=== PATIENT | male | born 1970 | race Caucasian/White ===

== ENCOUNTER 2020-01-29 20:08 | Inpatient (IN) | payer MEDICAID, SELFPAY ==
[2020-01-29 20:13] VITALS: BP 147/98; PULSE 76; RESP 13; TEMP 36.9; O2SAT 99
--- NOTE | 2020-01-29 20:15 | RT.EKG_ITS ---
APPROVED REPORT Exam: Resting ECG Patient Location: E HR:66 bpm ECG Measurements Heart Rate 66 AXIS UT 147 P 64 QRSd 117 QRS 77 QT 374 T 57 QTc 393 <Conclusion> Sinus rhythm...normal P axis, V-rate 60- 99 Nonspecific intraventricular conduction delay...QRSd >115mS, not LBBB/RBBB Normal [place] I have reviewed and interpreted ECG and agree with software generated interpretation.
--- NOTE | 2020-01-29 20:16 | W.ED.GENAD ---
Discharge Plan Disposition Patient Disposition: [facility] INPATIENT Condition: Good Discharge Details Chief Complaint: Palpitatns Clinical Impression: Near syncope, Epigastric pressure, Elevated troponin I level Primary Care Provider: Sallie Segura ED Provider: Logan Rondon and New Rx's Prescriptions: No Action ibuprofen 200 MG capsule 400 mg PO PRN PRNRF: 0 Medical Decision Making Patient presents to ED with palpitations, lightheadedness, shortness of breath, and this evening some abdominal pressure. He denies having chest pain or pressure. He has no known cardiac risk factors other than smoking E cigarettes. Family has history of arrhythmias and valvular disease. Low risk for PE. Does not appear to be in any type of distress. His EKG is sinus rhythm and he does have a nonspecific intraventricular delay. ST segments are normal. Laboratory studies ordered including TSH. Chest x-ray ordered to evaluate heart size. Will plan repeat EKG and troponin at 3 hours due to the complaint of upper abdominal pressure this evening. First set of laboratory studies look fine. He is not anemic. Electrolytes are normal. First troponin negative. D-dimer negative. TSH just a little bit high but free T4 normal. Chest x-ray unremarkable. Patient has had no arrhythmias or desaturations monitor. We will plan second EKG and troponin and discharged to follow-up as outpatient if unchanged. Second EKG is sinus bradycardia but otherwise normal. However, second troponin has gone up and is now 0.14. Patient has been asymptomatic here. This is clearly a significant change. Aspirin and heparin ordered. Cardiology consult with [facility] asked for. Discussed with cardiology at [facility]. They are not convinced that this is necessarily a nSTEMI. Agree with admission for trending of enzymes and ECHO if possible in the morning. Continue heparin for now. Case discussed with hospitalist who accepts patient for admission here to telemetry bed. Patient remains asymptomatic and stable at this time. Lab Data Lab results reviewed: Yes I reviewed the patient's lab results. HPI General Mode of arrival: ambulatory. Date/Time Provider Initiated Documentation: 01/29/20 20:16. Limitations to Documentation: no limitations. Information obtained by: patient and RN notes reviewed. HPI Narrative: Patient presents to ED with complaint of palpitations, racing heart and lightheadedness since yesterday. This afternoon seemed to break and he felt better. This evening symptoms came back. He is feeling short of breath as well. He does report that he took his pulse when he felt this way yesterday and only noted that it was around 85-90. He has had lightheadedness, tunnel vision, ringing in the ears like he is going to pass out intermittently since yesterday. He denies having headache or vertigo. He has no neurologic deficits or changes. He has no vomiting, diarrhea, fever, cough. There is no leg pain or leg swelling. He has noted some upper abdominal pressure this evening after dinner. That is resolved at this point. As far as he knows he is healthy with no significant medical problem but has not seen a physician in almost a decade. He does use e-cigarettes. There is no family history of ischemic cardiac disease but there is history of arrhythmia and valvular disease. Related Data Home Medications Medication Instructions Recorded Confirmed ibuprofen 400 mg PO PRN PRN 08/21/14 08/21/14 Allergies Allergy/AdvReac Type Severity Reaction Status Date / Time No Known Allergies Allergy Unverified 08/21/14 15:29 Review of Systems Narrative: As documented in HPI otherwise negative as below. Const: no fever, chills, weakness Resp: no cough, pleuritic pain CV: no CP, diaphoresis, edema, syncope GI: no abdominal pain, nausea, vomiting, diarrhea Neuro: no headache, numbness, focal weakness, confusion PFSH Medical History (Updated 01/30/20 @ 01:40 by Logan Rondon MD) Basal cell carcinoma (BCC) (Chronic) Surgical History S/P vasectomy (Acute) Family History (Updated 01/20/20 @ 11:26 by Sharonda Crowley) Mother Depression Father Hypertension Sister Depression Sister No problems noted. Son Asthma Daughter No problems noted. Daughter Asthma Maternal Grandfather , 66 Cancer Paternal Grandfather , 91 No problems noted. Maternal Grandmother , 86 No problems noted. Paternal Grandmother , 95 Cancer Social History Smoking/Tobacco Use Status: Current every day Tobacco Type: e-cigarettes Alcohol Intake: current Alcohol Intake frequency: a few times a week Alcohol type: beer Drug use: Daily Substance use type: marijuana Caregiver/Support person: No Household members: other Details: SON ON WEEKENDS Housing: house Communication Needs: None Pets and animals: No Sexually active: No Do you think of yourself as: straight/heterosexual Current gender identity: male What is your relationship status?: Panel score (0-1 are the most socially isolated patients): 0 What type of physical activity do you participate in: other Details: HIKING AND MARTIAL ARTS Duration: 60-90 minutes/day Frequency: 5-6 times per week Seatbelt use: always 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 Initially hypertensive but otherwise normal vitals and room air pulse ox. Const: WDWN male in NAD. HEENT: NC/AT. Normal facial exam. Eyes: Normal conjunctiva and sclera. Neck: Supple. Trachea midline. Lungs: Normal respiratory effort. Lungs are clear. Cor: RRR without murmur/gallop. Good radial pulses. GI: Soft. NT/ND. No guarding or rebound. Neuro: A+O x 3. Normal speech, mentation, gait. Cranial nerves II - XII grossly intact. No gross motor or sensory deficit. Ext: No C/C/E. No calf tenderness. Skin: Warm and dry without rash.
[2020-01-29 20:40] LABS: Abs Immature Grans 0.02 k/cumm (0.0-0.09); Absolute Basophil Count 0.03 k/cumm (0.0-0.2); Absolute Eosinophil Count 0.25 k/cumm (0.0-0.7); Absolute Lymphocyte Count 3.05 k/cumm (1.2-3.4); Absolute Monocyte Count 0.77 k/cumm (0.11-0.7); Absolute Neutrophil Count 4.43 k/cumm (1.2-6.7); Basophils % 0.4; Eosinophils % 2.9; HCT 40.9 % (40.0-50.0); HGB 14.8 g/dL (13.5-17.5); Immature Grans % 0.2 %; Lymphocytes % 35.7; Mean Corp. HGB Concentration 36.2 g/dL (32.0-36.0); Mean Corpuscular Hemoglobin 29.7 pg (27.0-33.0); Mean Platelet Volume 8.7 fL (8.0-11.0); Neutrophils % 51.8; Platelet Count 286 x1000/uL (130-400); RBC 4.99 m/cumm (4.50-6.00); RBC Distribution Width 13.2 % (11.8-14.1); White Blood Cell Count 8.55 k/cumm (4.4-10.8)
[2020-01-29 20:56] LABS: ALT 25 U/L (16-63); AST 19 U/L (15-37); Albumin 4.4 g/dL (3.4-5.0); Alkaline Phosphatase 62 U/L (46-116); BUN 19 mg/dL (7-18); Bilirubin, Total 0.4 mg/dL (0.2-1.0); CREATININE 1.08 mg/dL (0.70-1.30); Calcium 9.4 mg/dL (8.5-10.1); Chloride 103 mmol/L (98-107); Glucose 104 mg/dL (74-106); Potassium 3.5 mmol/L (3.5-5.1); Sodium 140 mmol/L (136-145); Total Protein 7.5 g/dL (6.4-8.2)
--- NOTE | 2020-01-29 21:00 | DI.RAD_ITS ---
EXAM: XR CHEST 2V PA LATERAL CLINICAL HISTORY: SOB TECHNIQUE: 2D digital imaging was performed. COMPARISON: No exams were available for comparison FINDINGS: The heart is not enlarged. The lungs are clear and well expanded. No pleural effusion seen. Mediastin al contours appear intact. IMPRESSION: Normal chest
[2020-01-29 21:01] LABS: Troponin I < 0.05 ng/mL (<0.06)
--- NOTE | 2020-01-29 21:08 | DI.VRAD_ITS ---
PROCEDURE INFORMATION: Exam: XR Chest, 2 Views Exam date and time: 01/29/2020 9:01 PM Age: 49 years old Clinical indication: Shortness of breath TECHNIQUE: Imaging protocol: XR of the chest Views: 2 views. COMPARISON: No relevant prior studies available. FINDINGS: Lungs: Unremarkable. No consolidation. Pleural space: Unremarkable. No pleural effusion. No pneumothorax. Heart/Mediastinum: Unremarkable. No cardiomegaly. Bones/joints: Unremarkable. IMPRESSION: No acute findings. Dictated and Authenticated by: Rocael Dorsey MD. Ordering:KAMILLE Ford MD
[2020-01-29 21:14] LABS: D-Dimer 279 ng/mlFEU (<500)
[2020-01-29 21:21] LABS: TSH (W/Ref FT4) 5.51 uIU/mL (0.36-3.74)
[2020-01-29 21:40] VITALS: BP 119/87; PULSE 59; RESP 16; O2SAT 96
--- NOTE | 2020-01-29 21:40 | NUR.NOTE ---
Pt resting in bed, NAD. Denies pain. Aware of plan for repeat EKG and trop at 2330. Call ruiz in reach
[2020-01-29 21:46] LABS: FREE T4 1.33 ng/dL (0.76-1.46)
--- NOTE | 2020-01-29 23:15 | RT.EKG_ITS ---
APPROVED REPORT Exam: Resting ECG Patient Location: E HR:53 bpm ECG Measurements Heart Rate 53 AXIS IA 136 P 45 QRSd 112 QRS 69 QT 416 T 49 QTc 390 <Conclusion> Sinus bradycardia...rate< 60 Normal [place] I have reviewed and interpreted ECG and agree with software generated interpretation.
[2020-01-29 23:51] VITALS: BP 126/83; PULSE 57; RESP 13; O2SAT 96
[2020-01-30] VITALS (7 sets, daily range): BP systolic 128–146; BP diastolic 75–101; PULSE 48–67; RESP 16–20; TEMP 35.2–36.6; O2SAT 95–100
[2020-01-30 00:23] LABS: Troponin I 0.14 ng/mL (<0.06)
[2020-01-30] MEDS: Aspirin 81 MG CHEW 324 MG CH (00:43)
--- NOTE | 2020-01-30 01:03 | NUR.NOTE ---
Remains pain free. sinus tenzin on monitor.
[2020-01-30 01:28] LABS: PTT Activated 25.3 sec (21.0-31.4); Prothrombin Time 10.4 sec (9.3-11.0)
[2020-01-30] MEDS: POTASSIUM CHLORIDE/D5-0.45NACL 1,000 ML 100 MEQ IV (04:44)
[2020-01-30] MEDS: Ticagrelor 90 MG TAB 180 MG PO (04:44)
[2020-01-30 04:56] LABS: Troponin I < 0.05 ng/mL (<0.06)
[2020-01-30 05:42] LABS: *AMPHETAMINES SCREEN URINE Negative (Negative); *BARBITURATES SCREEN URINE Negative (Negative); *BENZODIAZEPINES SCREEN URINE Negative (Negative); Cannabinoids THC POSITIVE (Negative); Cocaine Screen,Urine Negative (Negative); METHADONE URINE SCREEN Negative (Negative); OPIATES URINE SCREEN Negative (Negative)
[2020-01-30 05:46] LABS: Tricyclic Antidepressants Negative (Negative)
--- NOTE | 2020-01-30 06:20 | HPE_ITS ---
Date of service: 01/30/20 Time of Service: 06:20 Assessment and Plan Assessment and plan (1) Elevated troponin I level: Status: Acute Assessment and plan: New epigastric discomfort and lightheadedness s uggesting possible hypoperfusion with a dynamic increase on second troponin level both suggest acute coronary syndrome. EKG on presentation did not show ST elevations, and case reviewed with [facility] cardiology from the emergency room, no indication for transfer for emergent catheterization. Patient was started on therapeutic heparin drip, which will be continued along with antiplatelet therapy. I have also written for high intensity statin therapy. Hemodynamically patient has been stable, with low pulses. If it becomes more clear that this was a non-ST elevation VT after the input of cardiology, could consider starting low-dose beta-tobi. No current evidence of CHF clinically or on chest x-ray The elevated troponin was only in intermediate range, and third troponin was back to normal. This trend, along with lack of any ongoing symptoms, suggest there is no ongoing ischemia. We will touch base with cardiology before turning off heparin drip (though I am now hearing really may not be available in-house today). With a history of valvular disease in first-degree relatives, will get echocardiogram as well. He is 6 feet 5 inches tall raising some concern of Marfan's or Marbella-Danlos syndrome given that family history. (2) Continuous nicotine dependence: Status: Acute Assessment and plan: Former smoker, current vaping. Still likely increases cardiac risk. Will encourage patient and offered tools of nicotine cessation, declines for now. (3) Hyperthyroidism, subclinical: Status: Acute Assessment and plan: Mildly elevated TSH with normal free T4. No indic ation for treatment. Should be followed as an outpatient. (4) DVT prophylaxis: Status: Acute Assessment and plan: On heparin for acute coronary syndrome (5) Discharge planning issues: Status: Acute Assessment and plan: Patient is admitted inpatient with telemetry monitoring. Disposition pending serial troponins and cardiology input regarding management. History of Present Illness History of Present Illness Chief Complaint: epigastric pressure Narrative: 49-year-old male with history of smoking and current vaping, history of chronic anxiety who presented with 2 days of persistent epigastric pressure associated with shortness of breath, lightheadedness, and palpitations. Patient's states he was in his normal state of health until Sunday after lunch when he started feeling an epigastric pressure. Onset was at rest and down. He had chopped wood earlier in that day without symptoms. He describes this as pushing, not painful or sharp. This was associated with some difficulty catching his breath, feeling that his heart was racing, and feeling lightheaded. There was no radiation to the back or neck or arm. Patient stated in the middle of the epigastrium or lower chest. He did feel like he had gas in his stomach, but was not able to burp. Not associated with mahsa heartburn. He does have chronic anxiety, but this does not seem to have been triggered by increase in anxiety. Symptoms continued and varying intensity, he was able to go to sleep that evening. He resumed shortly after waking up on . They went away for 2 hours, but returned evening about 45 minutes after his dinner, which point he presented to the emergency room. He has not had resumption of the epigastric pressure since being in the emergency room. He did feel short of breath briefly upon waking this morning, but this resolved after a couple of deep breaths. Last night in the emergency room, he was started on a heparin drip along with aspirin. Given a single dose of ticagrelor and started on 80 mg atorvastatin upon admission. Of note, he was taking scheduled ibuprofen because he throughout his lower back the week prior to presentation, but this stopped 2 days prior to his onset of symptoms. Review of Systems All systems reviewed & are unremarkable except as noted in HPI and below Eyes Eyes: Denies eye pain (Some blurriness with lightheaded symptoms ) ENT Ears, Nose, Mouth, and Throat: Denies vertigo, Denies mouth lesions, Denies nasal congestion, Denies sinus pain and Denies sore throat Comments: Some ringing in ears when he was feeling dizzy Cardiovascular Comments: Some increased hand sweating. No orthopnea Respiratory Respiratory: Denies cough, Denies pain on inspiration and Denies wheezing Gastrointestinal Gastrointestinal: Denies melena, Denies hematochezia, Denies heartburn and Denies vomiting Musculoskeletal Musculoskeletal: Reports back pain and Denies radiating pain into limb Neurologic Neurologic: Denies vertigo Psychiatric Psychiatric: Reports anxiety and Denies panic attacks Hematologic/Lymphatic Hematologic/Lymphatic: Denies easy bleeding and Denies easy bruising Allergic/Immunologic Allergic/Immunologic: Denies wheezing [facility] Medical History Anxiety (Chronic) Basal cell carcinoma (BCC) (Chronic) Continuous nicotine dependence (Acute) Hyperthyroidism, subclinical (Acute) Surgical History S/P vasectomy (Acute) Family History Mother Depression Father Hypertension Sister Depression Sister No problems noted. Son Asthma Daughter No problems noted. Daughter Asthma Maternal Grandfather , 66 Cancer Paternal Grandfather , 91 No problems noted. Maternal Grandmother , 86 No problems noted. Paternal Grandmother , 95 Cancer Social History (Updated 01/30/20 @ 07:40 by Dakota Capone) Smoking/Tobacco Use Status: Current every day Tobacco Type: e-cigarettes Alcohol Intake: current Alcohol Intake frequency: a few times a week Alcohol ty pe: beer Drug use: Daily Substance use type: marijuana Caregiver/Support person: No Household members: other Details: SON ON WEEKENDS Housing: house Communication Needs: None Pets and animals: No Sexually active: No Do you think of yourself as: straight/heterosexual Current gender identity: male What is your relationship status?: Panel score (0-1 are the most socially isolated patients): 0 What type of physical activity do you participate in: other Details: HIKING AND MARTIAL ARTS Duration: 60-90 minutes/day Frequency: 5-6 times per week Seatbelt use: always 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 Formally worked in [employer], currently not working Meds Home Medications and Allergies Home Medications Medication Instructions Recorded Confirmed Type ibuprofen 400 mg PO PRN PRN 08/21/14 08/21/14 History Allergies Allergy/AdvReac Type Severity Reaction Status Date / Time No Known Allergies Allergy Unverified 08/21/14 15:29 Exam Narrative Exam Narrative: General: Alert and oriented x3, sits up in bed comfortably with no distress. Speaking comfortably in full sentences. Pleasant. Nic, but not overly thin body habitus HEENT: Normocephalic, atraumatic. Conjunctive are clear, no icterus. Pupils equal round reactive to light, extraocular motions intact. Moist mucous membranes with oropharynx benign. No rhinorrhea. Neck is supple with no thyromegaly or other masses. Normal range of motion. Lungs: Clear to auscultation bilaterally normal effort. No wheezes or rails. Cardiovascular: Regular rate and rhythm, no murmurs, gallops, rubs. Carotid pulses 2+ bilaterally, no bruits. Radial and pedal pulses also 2+ bilaterally. Abdomen: Active bowel sounds, soft, nontender nondistended. No organomegaly or other masses. Extremities: No cyanosis, clubbing, or edema. Nontender to palpation in the lower extremities. MSK: No joint redness or swelling. No clear hypermobility or deformity Skin: No rashes or other skin lesions. Neurologic: Cranial nerves II through XII grossly intact. Normal speech, gait, coordination. No tremor. Psychiatric: Mood and affect slightly anxious. Normal thought process. No ps ychomotor agitation. Results Imaging Chest x-ray: report reviewed (No cardiomegaly, no airspace disease.) Additional studies: Normal sinus with no ischemic ST abnormalities, specific intraventricular conduction delay. Repeat EKG 3 hours after presentation showed sinus bradycardia and again no ischemic ST changes. EKG: report reviewed Labs Result diagrams: 01/29/20 20:20 01/29/20 20:20 Labs: Laboratory Results - last 24 hr 01/29/20 01/29/20 01/29/20 20:20 20:20 20:20 WBC 8.55 RBC 4.99 Hgb 14.8 Hct 40.9 MCV 82.0 MCH 29.7 MCHC 36.2 H RDW 13.2 Plt Count 286 MPV 8.7 Immature Gran % 0.2 Neutrophils % 51.8 Lymphocytes % 35.7 Monocytes % 9.0 Eosinophils % 2.9 Basophils % 0.4 Absolute Neutrophils 4.43 Absolute Lymphocytes 3.05 Absolute Monocytes 0.77 H Absolute Eosinophils 0.25 Absolute Basophils 0.03 PT INR APTT D-Dimer 279 Sodium 140 Potassium 3.5 Chloride 103 Carbon Dioxide 24.0 Anion Gap 13.0 H BUN 19 H Creatinine 1.08 Estimated GFR/1.73 m2 >= 60.00 Glucose 104 Calcium 9.4 Magnesium 2.0 Total Bilirubin 0.4 AST 19 ALT 25 Alkaline Phosphatase 62 Troponin I < 0.05 Total Protein 7.5 Albumin 4.4 TSH 5.51 H Free T4 1.33 Urine Opiates Screen Urine Methadone Screen Ur Barbiturates Screen Ur Tricyclics Screen Ur Amphetamines Screen U Benzodiazepines Scrn Urine Cocaine Screen Ur THC Screen 01/29/20 01/30/20 01/30/20 23:25 00:00 04:00 WBC RBC Hgb Hct MCV MCH MCHC RDW Plt Count MPV Immature Gran % Neutrophils % Lymphocytes % Monocytes % Eosinophils % Basophils % Absolute Neutrophils Absolute Lymphocytes Absolute Monocytes Absolute Eosinophils Absolute Basophils PT 10.4 INR 1.0 APTT 25.3 D-Dimer Sodium Potassium Chloride Carbon Dioxide Anion Gap BUN Creatinine Estimated GFR/1.73 m2 Glucose Calcium Magnesium Total Bilirubin AST ALT Alkaline Phosphatase Troponin I 0.14 H* Total Protein Albumin TSH Free T4 Urine Opiates Screen Negative Urine Methadone Screen Negative Ur Barbiturates Screen Negative Ur Tricyclics Screen Negative Ur Amphetamines Screen Negative U Benzodiazepines Scrn Negative Urine Cocaine Screen Negative Ur THC Screen Positive A 01/30/20 04:10 WBC RBC Hgb Hct MCV MCH MCHC RDW Plt Count MPV Immature Gran % Neutrophils % Lymphocytes % Monocytes % Eosinophils % Basophils % Absolute Neutrophils Absolute Lymphocytes Absolute Monocytes Absolute Eosinophils Absolute Basophils PT INR APTT D-Dimer Sodium Potassium Chloride Carbon Dioxide Anion Gap BUN Creatinine Estimated GFR/1.73 m2 Glucose Calcium Magnesium Total Bilirubin AST ALT Alkaline Phosphatase Troponin I < 0.05 Total Protein Albumin TSH Free T4 Urine Opiates Screen Urine Methadone Screen Ur Barbiturates Screen Ur Tricyclics Screen Ur Amphetamines Screen U Benzodiazepines Scrn Urine Cocaine Screen Ur THC Screen Last Vital Signs Temp 36.6 C 01/30/20 02:54 Pulse 60 01/30/20 02:54 Resp 18 01/30/20 02:54 BP 135/87 01/30/20 02:54 Pulse Ox 96 01/30/20 02:54 COVID-19 Screening Have you,or household,traveled outside [place] in last 14 days?: No Had IN PERSON contact w/suspected or confirmed C-19 person: No
[2020-01-30] MEDS: Aspirin 81 MG CHEW 162 MG PO (08:38)
[2020-01-30 08:43] LABS: PTT Activated 36.6 sec (21.0-31.4)
--- NOTE | 2020-01-30 09:01 | INITIAL_ITS ---
- If Service Date Differs Date of service: 01/30/20 Time of Service: 09:01 Care Management Initial Assess REASON FOR HOSPITALIZATION:: Acute ccoronary syndrome PAST MEDICAL HISTORY/PAST SURGICAL HISTORY:: Medical History . Anxiety (Chronic). Basal cell carcinoma (BCC) (Chronic). Continuous nicotine dependence (Acute). Hyperthyroidism, subclinical (Acute). Surgical History . S/P vasectomy (Acute) PREVIOUS FUNCTIONAL STATUS/SOCIAL/FAMILY SUPPORTS:: Anant lives in a single family home in [place], [place] with his 14 year old son, who is with him on weekends. Anant was employed until December in the [employer].He is currently unemployed but is receiving unemployment compensation which he states is very helpful. Anant is independent in the community and does not receive any community services.. CURRENT FUNCTIONAL STATUS:: Anant was sitting up in a chair when CM met with him. He appeared to be in good spirits and engaged readily with CM. Anant hopes to be able to go home later today. ADVANCE DIRECTIVES:: None on file Has patient been provided with info about the portal/API?: No Did the patient sign up for the portal?: Yes (previously) CODE STATUS:: Full Code INSURANCE COVERAGE / FINANCIAL ISSUES:: Medicaid CURRENT HOME/COMMUNITY SERVICES/EQUIPMENT:: none PRIMARY CARE PHYSICIAN:: Sallie Segura POTENTIAL DISCHARGE NEEDS:: Follow up with cardiology, PCP and discharge plan of care PATIENT/FAMILY EDUCATION NEEDS:: Discharge plan, limitations, follow up plan, Ask Me Three TRANSPORTATION:: via private vehicle PLAN:: Anant will be discharged home with no new services. He will be scheduled for a stress test on Sunday and follow up with Cardiology and his PCP. He willl transport home via private vehicle with family.
--- NOTE | 2020-01-30 13:00 | DI.CT_ITS ---
EXAM: CT THORAX CTA CLINICAL HISTORY: Chest pain TECHNIQUE: COMPARISON: No exams were available for comparison FINDINGS: CT angiography of the chest was performed with bolus infusion 100 cc of Omnipaque 350 images obtained through the upper abdomen show unremarkable appearance of visualized portions of the liver, spleen, pancreas, adrenals, and kidneys. Gallbladder intact as visualized and no biliary dilatation seen. There is no evidence of mediastinal or hilar adenopathy. The tracheobronchial tree appears intact. The lungs are clear. No pleural effusion or pneumothorax. Thoracic aorta is of normal diameter and there is no evidence of dissection. Major branches appear i ntact. Pulmonary arteries are not ideally opacified but there is no sign trauma pulmonary artery embolus see n. Cardiac size is within normal limits, no pericardial effusion, no coronary artery calcification seen. IMPRESSION: Negative chest CT angiogram, no evidence of thoracic aortic aneurysm or dissection.
[2020-01-30] MEDS: Omnipaque 350 MG/ML 100 ML BTL IJ (13:11)
--- NOTE | 2020-01-30 13:27 | PHA.REVIEW ---
Pharmacy Admission Review - Admission Clinical Review (Last Reviewed 01/30/20 @ 07:26 by Dakota Capone) Hyperthyroidism, subclinical (Acute) Discharge planning issues (Acute) DVT prophylaxis (Acute) Continuous nicotine dependence (Acute) Near syncope (Acute) Epigastric pressure (Acute) Elevated troponin I level (Acute) No Known Allergies Allergy (Unverified 08/21/14 15:29) Height 6 ft 5 in Weight 95 kg - Renal Dosing Renal Dosing: BUN 19 mg/dL (7-18) H 01/29/20 20:20 Creatinine 1.08 mg/dL (0.70-1.30) 01/29/20 20:20 Medications needing adjustments: Reviewed - Anticoagulation Anticoagulation: Hgb 14.8 g/dL (13.5-17.5) 01/29/20 20:20 Hct 40.9 % (40.0-50.0) 01/29/20 20:20 Plt Count 286 x1000/uL (130-400) 01/29/20 20:20 INR 1.0 (0.9-1.1) 01/30/20 00:00 Creatinine 1.08 mg/dL (0.70-1.30) 01/29/20 20:20 DVT Prohphylaxis: Reviewed Medications: Aspirin - Opiate Usage Evaluate Pain Scale/Pains Meds: Reviewed Scheduled Bowel Reg ordered if on Opiates?: No - Relevant Labs Sodium 140 mmol/L (136-145) 01/29/20 20:20 Potassium 3.5 mmol/L (3.5-5.1) 01/29/20 20:20 Chloride 103 mmol/L (98-107) 01/29/20 20:20 Magnesium 2.0 mg/dL (1.8-2.4) 01/29/20 20:20 - DM Control DM Control: Glucose 104 mg/dL (74-106) 01/29/20 20:20 Insulin Dosing: N/A - Heart Failure/ND Heart Failure/ND: Troponin I < 0.05 ng/mL (<0.06) 01/30/20 04:10 EF%, YANCI's, B-Blockers, Diuretics: Reviewed - BP Control BP Control: Blood Pressure 146/75 Blood Pressure 131/92 Blood Pressure 137/101 Blood Pressure 135/87 Blood Pressure 135/87 Blood Pressure 128/86 If elevated: Reviewed - Qtc Review If Elevated: Reviewed (QTc 390) - IV to PO Switch IV Medications: Reviewed - Home Meds Home Med List reviewed: Reviewed - Current meds Current Medication Order Review: Reviewed (One time does of ticagrelor given @ 0150 01/29)
[2020-01-30 13:39] LABS: COVID-19 RT-PCR UVMMC Result Negative (Negative)
--- NOTE | 2020-01-30 14:26 | PGE_ITS ---
Date of Service Date of service: 01/30/20 Time of Service: 14:27 Assessment and Plan Assessment and plan (1) Elevated troponin I level: Status: Resolved Assessment and plan: Given his symptoms and transient rise in his troponin, I think that he needs further cardiology evaluation, Unfortunately we do not have any cardiology until Sunday. Furthermore, we do not have echo today either. I have placed a call to [facility] transfer center to discuss his case w/ their cardiology to discuss management, i.e., inpatient vs close outpatient follow up stress MPI and echo. Case was reviewed with Dr. Ayala, beauty specialist from [facility] who reviewed the EKGs and discuss case with me. In light of the fact that patient has been asymptomatic for nearly 24 hours with no arrhythmias and no EKG changes and no rise in his troponin he agrees with me that it is probably safe to discharge him home with close follow-up with expedited stress MPI treadmill test for next week. I will also get an echocardiogram next week. (2) Epigastric pressure: Status: Resolved Assessment and plan: resolved. I will put him prophylactically on a PPI. (3) Near syncope: Status: Resolved Assessment and plan: He had a feeling of nearly passing out on Sunday with his episode and then felt fatigued all day yesterday. This may have been vagal or may have been d/t to arrythmias. It is rather odd that he felt palpitations w/ his dyspnea and feeling of like he was going to pass out. While here he has been sinus bradycardia to sinus rhythm but no tachycardia and no AV block. Subjective Subjective Interval history since last seen: Patient was seen this morning around 9:30 AM. He has remained pain-free and had no dyspnea since he was admitted. See Dr. Dakota Arroyo's admission H&P for details. This 49-year-old male smoker presented with exertional dyspnea, palpitations but no actual chest pain. All of his symptoms began 2 days ago after cutting and splitting wood. He felt fatigued all day yesterday and when he continued having feelings of lightheadedness and generalized malaise he presented to the emergency department. He had transient elevation in his troponin which is since returned to normal. He had serial EKGs which failed to show any acute infarct or ischemic pattern. He had some nonspecific interventricular conduction delay as EKG. His initial troponin was less than 0.05 but his repeat level on a second set was in the indeterminate range at 0.1 4 repeat level this morning was less than 0.05. Patient was started on aspirin and Brilinta and heparin drip last night by the information technology associate. Dr. Logan Rondon, ER physician, spoke with cardiology at [facility] [place] last night. He indicated that cardiology was not convinced that this is a non-STEMI but recommended continued admission for observation and serial troponin levels. He was started on heparin in the emergency department as well as aspirin and Dr. Dakota Capone, information technology associate, added Brilinta. We have no echo services and no cardiology services. I have reached out to [facility] this morning and they have no bed availability. At this time I have called [facility] this afternoon to talk with cardiology regarding potential transfer for inpatient evaluation versus discontinuing the heparin drip monitoring for any further anginal quality symptoms and if no further symptoms potentially doing outpatient work-up next week. I asked advised family history and does not sound like there is any history of premature coronary disease but multiple family members have had valvular heart disease including a sister and his mother both who had a valve replacement. His sisters disease with mitral valve prolapse. Exam Narrative Exam Narrative: Very tall thin muscular middle-age male who is in no distress he is alert oriented person place time and circumstance. Neck is supple no JVD normal carotid pulse no bruits Lungs are clear to auscultation. Heart regular rate and rhythm no appreciable murmur rub or gallop. Abdomen soft nontender no pulsatile masses no bruits. Extremities without peripheral cyanosis or edema. No calf tenderness. Objective Objective Clinical Data: Abnormal lab results 01/29/20 01/29/20 01/29/20 Range/Units 20:20 20:20 23:25 MCHC 36.2 H (32.0-36.0) g/dL Absolute Monocytes 0.77 H (0.11-0.7) k/cumm APTT (21.0-31.4) sec Anion Gap 13.0 H (3-11) mmol/L BUN 19 H (7-18) mg/dL Troponin I 0.14 H* (<0.06) ng/mL TSH 5.51 H (0.36-3.74) uIU/mL Ur THC Screen (Negative) 01/30/20 01/30/20 Range/Units 04:00 07:57 MCHC (32.0-36.0) g/dL Absolute Monocytes (0.11-0.7) k/cumm APTT 36.6 H D (21.0-31.4) sec Anion Gap (3-11) mmol/L BUN (7-18) mg/dL Troponin I (<0.06) ng/mL TSH (0.36-3.74) uIU/mL Ur THC Screen Positive A (Negative) Vital Signs Temperature 35.2 C L 01/30/20 11:15 Temperature Source Tympanic 01/30/20 11:15 Pulse 49 L 01/30/20 11:15 Pulse Rhythm Regular 01/30/20 06:50 Respiratory Rate 19 01/30/20 11:15 Respiratory Effort Non-Labored 01/30/20 06:50 Respiratory Depth Normal 01/30/20 06:50 Respiratory Pattern Normal 01/30/20 06:50 Blood Pressure 146/75 H 01/30/20 11:15 Pulse Oximetry 99 01/30/20 11:15 Oxygen Delivery Method Room Air 01/30/20 11:15 Oxygen Flow Rate 0 01/30/20 11:15 Pain Level 0 01/30/20 11:15 Comment 01/30/20 02:20 Intake & Output 01/29/20 01/30/20 01/30/20 23:59 11:59 23:59 Intake Total 82.5 / 82.5 Balance 82.5 / 82.5 Weight 90.718 kg 95 kg Intake: IV 82.5 / 82.5 Other: Urine Appearance Clear Laboratory Results WBC 8.55 k/cumm (4.4-10.8) 01/29/20 20:20 RBC 4.99 m/cumm (4.50-6.00) 01/29/20 20:20 Hgb 14.8 g/dL (13.5-17.5) 01/29/20 20:20 Hct 40.9 % (40.0-50.0) 01/29/20 20:20 MCV 82.0 fL (80-95) 01/29/20 20:20 MCH 29.7 pg (27.0-33.0) 01/29/20 20:20 MCHC 36.2 g/dL (32.0-36.0) H 01/29/20 20:20 RDW 13.2 % (11.8-14.1) 01/29/20 20:20 Plt Count 286 x1000/uL (130-400) 01/29/20 20:20 MPV 8.7 fL (8.0-11.0) 01/29/20 20:20 Immature Gran % 0.2 % 01/29/20 20:20 Neutrophils % 51.8 01/29/20 20:20 Lymphocytes % 35.7 01/29/20 20:20 Monocytes % 9.0 01/29/20 20:20 Eosinophils % 2.9 01/29/20 20:20 Basophils % 0.4 01/29/20 20:20 Absolute Neutrophils 4.43 k/cumm (1.2-6.7) 01/29/20 20:20 Absolute Lymphocytes 3.05 k/cumm (1.2-3.4) 01/29/20 20:20 Absolute Monocytes 0.77 k/cumm (0.11-0.7) H 01/29/20 20:20 Absolute Eosinophils 0.25 k/cumm (0.0-0.7) 01/29/20 20:20 Absolute Basophils 0.03 k/cumm (0.0-0.2) 01/29/20 20:20 PT 10.4 sec (9.3-11.0) 01/30/20 00:00 INR 1.0 (0.9-1.1) 01/30/20 00:00 APTT 36.6 sec (21.0-31.4) H D 01/30/20 07:57 D-Dimer 279 ng/mlFEU (<500) 01/29/20 20:20 Sodium 140 mmol/L (136-145) 01/29/20 20:20 Potassium 3.5 mmol/L (3.5-5.1) 01/29/20 20:20 Chloride 103 mmol/L (98-107) 01/29/20 20:20 Carbon Dioxide 24.0 mmol/L (21.0-32.0) 01/29/20 20:20 Anion Gap 13.0 mmol/L (3-11) H 01/29/20 20:20 BUN 19 mg/dL (7-18) H 01/29/20 20:20 Creatinine 1.08 mg/dL (0.70-1.30) 01/29/20 20:20 Estimated GFR/1.73 m2 >= 60.00 (mL/min/1.73m2) 01/29/20 20:20 Glucose 104 mg/dL (74-106) 01/29/20 20:20 Calcium 9.4 mg/dL (8.5-10.1) 01/29/20 20:20 Magnesium 2.0 mg/dL (1.8-2.4) 01/29/20 20:20 Total Bilirubin 0.4 mg/dL (0.2-1.0) 01/29/20 20:20 AST 19 U/L (15-37) 01/29/20 20:20 ALT 25 U/L (16-63) 01/29/20 20:20 Alkaline Phosphatase 62 U/L (46-116) 01/29/20 20:20 Troponin I < 0.05 ng/mL (<0.06) 01/30/20 04:10 Total Protein 7.5 g/dL (6.4-8.2) 01/29/20 20:20 Albumin 4.4 g/dL (3.4-5.0) 01/29/20 20:20 TSH 5.51 uIU/mL (0.36-3.74) H 01/29/20 20:20 Free T4 1.33 ng/dL (0.76-1.46) 01/29/20 20:20 Urine Opiates Screen Negative (Negative) 01/30/20 04:00 Urine Methadone Screen Negative (Negative) 01/30/20 04:00 Ur Barbiturates Screen Negative (Negative) 01/30/20 04:00 Ur Tricyclics Screen Negative (Negative) 01/30/20 04:00 Ur Amphetamines Screen Negative (Negative) 01/30/20 04:00 U Benzodiazepines Scrn Negative (Negative) 01/30/20 04:00 Urine Cocaine Screen Negative (Negative) 01/30/20 04:00 Ur THC Screen Positive (Negative) A 01/30/20 04:00 COVID-19 PCR Negative (Negative) 01/30/20 02:15 Nasopharyn COVID-19 PCR Not Applicable 01/30/20 02:15 Ref Test Perform Site [facility] 01/30/20 02:15 Reviewed Pertinent PMH: Yes Objective Narrative Objective Narrative: IMPRESSION: Negative chest CT angiogram, no evidence of thoracic aortic aneurysm or dissection.
--- NOTE | 2020-01-30 14:53 | CHAPLAIN ---
Anant was sitting up in a chair when I visited this morning. He said he is waiting for test results to return to determine if he being discharged today or staying here. I explained my role and offered support.
[2020-01-30] MEDS: Pantoprazole 40 MG TABCR PO (15:32)
--- NOTE | 2020-01-30 15:42 | DSE_ITS ---
Date of service: 01/30/20 Time of Service: 15:42 DS: Diagnosis Discharge Diagnosis (1) Elevated troponin I level: Status: Resolved Asessment and Plan: Patient had transient low level rise in his troponin without EKG changes. We are unable to get an echocardiogram or stress MPI study while as an inpatient. This will be set up for next week. Patient has been pain-free and without symptoms of dyspnea for the last [address] scan showed no aortic aneurysm. Echocardiogram could not be done as it was unavailable today. We will set him up for an echocardiogram next week. (2) Epigastric pressure: Status: Resolved (3) Near syncope: Status: Resolved Discharge Plan Disposition Patient Disposition: HOME Condition: Good Discharge Details Chief Complaint: Palpitatns Clinical Impression: Near syncope, Epigastric pressure, Elevated troponin I level Reason For Visit: palpitations, Admit Date/Time: 01/30/20 01:32 Admit Provider: Dakota Capone Attending Provider: Dakota Capone Primary Care Provider: Sallie Segura ED Provider: Logan Rondon [facility] Course Hospital Course: 49-year-old male smoker who is currently quit smoking but still vaping his past medical history is significant for basal cell carcinoma, nicotine dependence who presented after an acute episode on the day prior to admission of severe dizziness epigastric discomfort dyspnea and feeling like he was going to pass out. This occurred after he spent the day cutting and splitting wood. He went to bed but when he woke up the next day he felt fatigued and was c omplaining of palpitations. He has no known cardiac history although he has couple of family members who have had arrhythmias or valvular heart disease including a sister who had mitral valve prolapse requiring bovine valve replacement. As far as the patient knows he has had no known valvular heart disease. Work-up emergency department occluded serial EKGs that showed sinus rhythm with nonspecific interventricular conduction delay with a QRS duration of 117 ms but no bundle branch block and no advanced AV block. Repeat EKG showed sinus bradycardia rate of 53 bpm with a QRS duration of [address] acute [address] or T wave abnormalities. His first troponin came back negative at less than 0.05 and the ER physician was going to discharge him home but when he got the repeat troponin level it was in the indeterminate range of 0.14 and therefore the patient was admitted overnight for observation. Third set of troponin was obtained at 4 AM this morning came back negative at less than 0.05. Patient was started on heparin in the emergency department and the election assistant started the patient on Brilinta. Patient has remained pain-free. We are unable to get a stress test or echocardiogram today and as the patient has been pain-free and without any dyspnea or palpitations or arrhythmias he is going to be discharged home with follow-up stress MPI and echocardiogram next week. I discussed the case with Dr. Ayala, sign builder from [facility] who reviewed the EKGs and discussed the case with me. He feels that we can discharge her with close follow-up as well as the patient is able to get back into the hospital should he have any further symptoms. Home Meds and New Rx's Prescriptions: New aspirin 81 mg tablet,delayed release (DR/EC) 81 mg PO DAILY Qty: 30 RF: 0 No Action ibuprofen 200 MG capsule 400 mg PO PRN PRNRF: 0 Discharge Instructions Instructions: Angina (DC), Chest Pain (DC) Additional Instructions: You should receive instructions from the nursing staff regarding when to show up for your stress test for next week. If you have any symptoms of chest discomfort, dyspnea, dizziness or feel like you are going to pass out or extreme nausea do not hesitate to present to the emergency department. I would advise you to continue on an aspirin 81 mg tablet daily until we have gotten a negative stress test. Activity:: Activity as Tolerated Equipment/Supplies:: No Equipment Needed Diet:: Normal Diet Discharge Orders Other Ambulatory Orders: US echocardiogram (Routine) Timeframe: 3 Days Location: None Selected Ordered By: Pelon Chiu Nuclear Medicine Stress Test (Outpt) (ONCE) Timeframe: [id number] Facility: [facility] - Location: DIAGNOSTIC IMAGING DEPT Ordered By: Pelon Chiu DS: Summary Status at Discharge Functional status at discharge: independent ambulation Overall status at discharge: patient is back to baseline Mental Status: mental status grossly normal Speech and Movement: speech and movement normal Mood: congruent mood Affect: normal affect Time Spent with Patient providing and/or coordinating discharge services: Less than 30 minutes Exam Narrative Exam Narrative: Very tall thin muscular middle-age male who is in no distress he is alert oriented person place time and circumstance. Neck is supple no JVD normal carotid pulse no bruits Lungs are clear to auscultation. Heart regular rate and rhythm no appreciable murmur rub or gallop. Abdomen soft nontender no pulsatile masses no bruits. Extremities without peripheral cyanosis or edema. No calf tenderness. Psych Mental Status: mental status grossly normal Speech and Movement: speech and movement normal Mood: congruent mood Affect: normal affect DS: Data Vitals/I&O Vitals and I&O: Vital Signs Temperature 35.2 C L 01/30/20 11:15 Temperature Source Tympanic 01/30/20 11:15 Pulse 49 L 01/30/20 11:15 Pulse Rhythm Regular 01/30/20 15:33 Respiratory Rate 19 01/30/20 11:15 Respiratory Effort Non-Labored 01/30/20 15:33 Respiratory Depth Normal 01/30/20 15:33 Respiratory Pattern Normal 01/30/20 15:33 Blood Pressure 146/75 H 01/30/20 11:15 Pulse Oximetry 99 01/30/20 11:15 Oxygen Delivery Method Room Air 01/30/20 11:15 Oxygen Flow Rate 0 01/30/20 11:15 Pain Level 0 01/30/20 11:15 Comment 01/30/20 02:20 Intake & Output 01/29/20 01/30/20 01/30/20 23:59 11:59 23:59 Intake Total 82.5 / 82.5 Balance 82.5 / 82.5 Weight 90.718 kg 95 kg Intake: IV 82.5 / 82.5 Other: Urine Appearance Clear Clear Data Completed and Pending Labs on day of discharge: Labs from last 24 hours 01/30/20 01/30/20 01/30/20 15:00 07:57 04:10 WBC RBC Hgb Hct MCV MCH MCHC RDW Plt Count MPV Immature Gran % Neutrophils % Lymphocytes % Monocytes % Eosinophils % Basophils % Absolute Neutrophils Absolute Lymphocytes Absolute Monocytes Absolute Eosinophils Absolute Basophils PT INR APTT Cancelled 36.6 H D D-Dimer Sodium Potassium Chloride Carbon Dioxide Anion Gap BUN Creatinine Estimated GFR/1.73 m2 Glucose Calcium Magnesium Total Bilirubin AST ALT Alkaline Phosphatase Troponin I < 0.05 Total Protein Albumin TSH Free T4 Urine Opiates Screen Urine Methadone Screen Ur Barbiturates Screen Ur Tricyclics Screen Ur Amphetamines Screen U Benzodiazepines Scrn Urine Cocaine Screen Ur THC Screen COVID-19 PCR Nasopharyn COVID-19 PCR Ref Test Perform Site 01/30/20 01/30/2001/29/20 04:00 02:15 00:00 WBC RBC Hgb Hct MCV MCH MCHC RDW Plt Count MPV Immature Gran % Neutrophils % Lymphocytes % Monocytes % Eosinophils % Basophils % Absolute Neutrophils Absolute Lymphocytes Absolute Monocytes Absolute Eosinophils Absolute Basophils PT 10.4 INR 1.0 APTT 25.3 D-Dimer Sodium Potassium Chloride Carbon Dioxide Anion Gap BUN Creatinine Estimated GFR/1.73 m2 Glucose Calcium Magnesium Total Bilirubin AST ALT Alkaline Phosphatase Troponin I Total Protein Albumin TSH Free T4 Urine Opiates Screen Negative Urine Methadone Screen Negative Ur Barbiturates Screen Negative Ur Tricyclics Screen Negative Ur Amphetamines Screen Negative U Benzodiazepines Scrn Negative Urine Cocaine Screen Negative Ur THC Screen Positive A COVID-19 PCR Negative Nasopharyn COVID-19 PCR Not Applicable Ref Test [facility]29/20 01/29/20 01/29/20 23:25 20:20 20:20 WBC 8.55 RBC 4.99 Hgb 14.8 Hct 40.9 MCV 82.0 MCH 29.7 MCHC 36.2 H RDW 13.2 Plt Count 286 MPV 8.7 Immature Gran % 0.2 Neutrophils % 51.8 Lymphocytes % 35.7 Monocytes % 9.0 Eosinophils % 2.9 Basophils % 0.4 Absolute Neutrophils 4.43 Absolute Lymphocytes 3.05 Absolute Monocytes 0.77 H Absolute Eosinophils 0.25 Absolute Basophils 0.03 PT INR APTT D-Dimer 279 Sodium Potassium Chloride Carbon Dioxide Anion Gap BUN Creatinine Estimated GFR/1.73 m2 Glucose Calcium Magnesium Total Bilirubin AST ALT Alkaline Phosphatase Troponin I 0.14 H* Total Protein Albumin TSH Free T4 Urine Opiates Screen Urine Methadone Screen Ur Barbiturates Screen Ur Tricyclics Screen Ur Amphetamines Screen U Benzodiazepines Scrn Urine Cocaine Screen Ur THC Screen COVID-19 PCR Nasopharyn COVID-19 PCR Ref Test Perform Site 01/29/20 20:20 WBC RBC Hgb Hct MCV MCH MCHC RDW Plt Count MPV Immature Gran % Neutrophils % Lymphocytes % Monocytes % Eosinophils % Basophils % Absolute Neutrophils Absolute Lymphocytes Absolute Monocytes Absolute Eosinophils Absolute Basophils PT INR APTT D-Dimer Sodium 140 Potassium 3.5 Chloride 103 Carbon Dioxide 24.0 Anion Gap 13.0 H BUN 19 H Creatinine 1.08 Estimated GFR/1.73 m2 >= 60.00 Glucose 104 Calcium 9.4 Magnesium 2.0 Total Bilirubin 0.4 AST 19 ALT 25 Alkaline Phosphatase 62 Troponin I < 0.05 Total Protein 7.5 Albumin 4.4 TSH 5.51 H Free T4 1.33 Urine Opiates Screen Urine Methadone Screen Ur Barbiturates Screen Ur Tricyclics Screen Ur Amphetamines Screen U Benzodiazepines Scrn Urine Cocaine Screen Ur THC Screen COVID-19 PCR Nasopharyn COVID-19 PCR Ref Test Perform Site [facility] Medical History (Updated 01/30/20 @ 15:43 by Pelon Chiu) Anxiety (Chronic) Basal cell carcinoma (BCC) (Chronic) Continuous nicotine dependence (Acute) Surgical History S/P vasectomy (Acute) Family History Mother Depression Father Hypertension Sister Depression Sister No problems noted. Son Asthma Daughter No problems noted. Daughter Asthma Maternal Grandfather , 66 Cancer Paternal Grandfather , 91 No problems noted. Maternal Grandmother , 86 No problems noted. Paternal Grandmother , 95 Cancer Social History (Updated 01/30/20 @ 07:40 by Dakota Capone) Smoking/Tobacco Use Status: Current every day Tobacco Type: e-cigarettes Alcohol Intake: current Alcohol Intake frequency: a few times a week Alcohol type: beer Drug use: Daily Substance use type: marijuana Caregiver/Support person: No Household members: other Details: SON ON WEEKENDS Housing: house Communication Needs: None Pets and animals: No Sexually active: No Do you think of yourself as: straight/heterosexual Current gender identity: male What is your relationship status?: Panel score (0-1 are the most socially isolated patients): 0 What type of physical activity do you participate in: other Details: HIKING AND MARTIAL [employer]S Duration: 60-90 minutes/day Frequency: 5-6 times per week Seatbelt use: always Drive intox 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 Formally worked in [employer], currently not working
--- NOTE | 2020-01-30 16:56 | PDOC.CMDIS ---
- If Service Date Differs Date of service: 01/30/20 Time of Service: 16:56 LACE Index Scoring Tool - Questions: Length of Stay (in days): 1 Acuity (Admit via E.D.?): Yes Comorbidities: Any Tumor E.D. Visits: 1 - Answers: Total Score: 7 Risk of Readmission: Low Risk Care Management Discharge Reason for Hospitalization: Acute ccoronary syndrome Discharge Plan: Anant will be discharged home with no new services. He will be scheduled for a stress test on Sunday and follow up with Cardiology and his PCP. He willl transport home via private vehicle with family. Patient/Family Education Needs: Discharge plan, limitations, follow up plan, Ask Me Three
== END 2020-01-30 16:40 | disposition home or self-care (01) | DRG 312 ==
LOC: ER 01-30 02:03 → MS 01-30 02:21
PROVIDERS: Admitting Provider Family Medicine; Emergency Provider Emergency Medicine; PCP Nurse Practitioner Family; Visit Provider Family Medicine
DX: R55 Syncope and collapse (principal); R79.89 Other specified abnormal findings of blood chemistry; R06.09 Other forms of dyspnea; F17.290 Nicotine dependence, other tobacco product, uncomplicated; E05.90 Thyrotoxicosis, unspecified without thyrotoxic crisis or storm; R10.13 Epigastric pain; Z82.49 Family history of ischemic heart disease and other diseases of the circulatory system
CPT/HCPCS: 36415; 71275; 80053; 80307; 93005; 96365; 96376; 99222; 99232; 99238; 99285; U0003; 71046; 83735; 84439; 84443; 84484; 85025; 85379; 85610; 85730; 93010; J3490

== ENCOUNTER 2020-02-02 07:46 | Outpatient (CLI) | payer MEDICAID, SELFPAY ==
--- NOTE | 2020-02-02 11:45 | DI.NM_ITS ---
APPROVED REPORT Exam: Exercise Treadmill Patient Location: Out-Patient Room/Bed: Stress Nurse: Ailyn Abdi RN BMI: 23.71 Baseline Rhythm: Sinus Bradycardia Indications: Palpitations, SOB, Dizziness Medical History Medical History: Anxiety, Depression Cardiac Medications: Aspirin Allergies: No known drug allergies Cardiac Risk Factors: FHX of CAD Pretest Chest Pain Characteristics: No chest pain Exercise History: Physically active Lung Sounds: Clear to auscultation Heart Sounds: Regular Stress Test Details Test: Exercise stress testing was performed using a Mani protocol. Nuclear Acquisition: Rest Tc-99m/Stress Tc-99m 1 day Rest Isotope: Tc-99m Sestamibi. Dose: 11.0 Date: 02/02/2020 Injection Time: 1145 Stress Isotope: Tc-99m Sestamibi. Dose: 36 Date: 02/02/2020 Injection Time: 1350 HR Resting HR Supine: 56 bpm Max Heart Rate (APMHR): 172 bpm Resting HR Standin bpm Target HR (85% APMHR): 146 bpm Max HR Achieved: 152 bpm % of APMHR: 88 Recovery HR: 89 bpm HR response to stress: Normal HR response to stress BP Resting BP Supine: 138/74 mmHg Resting BP Standin/76 mmHg Max BP: 166/64 mmHg Recovery BP: 152/68 mmHg BP response to stress: Normal blood pressure response to stress. ECG Resting ECG: Sinus Bradycardia Stress ECG: Sinus Tachycardia ST Change: Normal Maximum ST Deviation: 5.1 mm Arrhythmia: VPC's Recovery ECG: Sinus Rhythm Recovery ST Change: Normal Recovery Arrhythmia: VPC Clinical Reason for Termination: Target HR Achieved, Fatigue, , Fatigue, ST changes Stress Symptoms: Leg Fatigue Exercise duration: 12 min0 sec Highest Stage Reached: Stage 4: 4.2 mph at 16% grade. Exercise capacity: 13.48 METs Functional Capacity: Above average capacity Stress ECG Conclusion 1. Patient exercised for 12 minutes (13 METS) 2. There were no symptoms suggestive of ischemia. 3. There is no evidence of ischemia on the ECG portion exam. MPI Conclusion Patient's ejection fraction was 52% with stress. There were no wall motion abnormalities. There was no evidence of ischemia on the imaging portion of the exam. This represents a normal SPECT stress test. Radiologist Interpretation Radiologist Interpretation by: Logan Mcbride MD Interpretation Date/Time: 02/02/2020 16:09:32
== END 2020-02-02 08:06 ==
PROVIDERS: PCP Nurse Practitioner Family; Visit Provider Internal Medicine
DX: R00.1 Bradycardia, unspecified (principal); R42 Dizziness and giddiness; R00.2 Palpitations
CPT/HCPCS: 78452; 93017

== ENCOUNTER 2020-02-10 09:28 | Emergency (ER) | payer MEDICAID, SELFPAY ==
[2020-02-10] VITALS (16 sets, daily range): BP systolic 110–166; BP diastolic 67–133; PULSE 60–93; RESP 9–24; TEMP 36.6; O2SAT 94–100
--- NOTE | 2020-02-10 09:30 | RT.EKG_ITS ---
APPROVED REPORT Exam: Resting ECG Patient Location: E HR:77 bpm ECG Measurements Heart Rate 77 AXIS NJ 138 P 71 QRSd 107 QRS 85 QT 366 T 56 QTc 415 <Conclusion> Sinus rhythm...normal P axis, V-rate 60- 99. No acute ST elevation or depression. No acute change from previous EKG.
[2020-02-10] MEDS: Aspirin 81 MG CHEW 243 MG CH (10:12)
[2020-02-10] MEDS: Aspirin 81 MG CHEW (10:13)
--- NOTE | 2020-02-10 10:35 | DI.RAD_ITS ---
EXAM: XR CHEST 2V PA LATERAL CLINICAL HISTORY: pain TECHNIQUE: 2D digital imaging was performed. COMPARISON: No exams were available for comparison FINDINGS: MEDIASTINUM: Normal. HEART: Normal. PULMONARY VASCULATURE: Normal. LUNGS: Clear. PLEURAL SPACE: No pleural effusion or pneumothorax. BONE:Normal. OTHER FINDINGS:Normal. IMPRESSION: No acute pulmonary findings. DATA REPOSITORY: RADIATION DOSE DELIVERED:
[2020-02-10 10:39] LABS: ALT 21 U/L (16-63); AST 16 U/L (15-37); Albumin 4.4 g/dL (3.4-5.0); Alkaline Phosphatase 49 U/L (46-116); Anion Gap 12.9 mmol/L (3-11); BUN 18 mg/dL (7-18); Bilirubin, Total 0.6 mg/dL (0.2-1.0); CO2 22.1 mmol/L (21.0-32.0); CREATININE 1.27 mg/dL (0.70-1.30); Calcium 9.4 mg/dL (8.5-10.1); Chloride 104 mmol/L (98-107); Glucose 107 mg/dL (74-106); Potassium 3.7 mmol/L (3.5-5.1); Sodium 139 mmol/L (136-145); Total Protein 7.6 g/dL (6.4-8.2)
[2020-02-10 10:42] LABS: Troponin I < 0.05 ng/mL (<0.06)
--- NOTE | 2020-02-10 12:39 | W.ED.GENAD ---
Discharge Plan Disposition Patient Disposition: HOME Condition: Stable Discharge Details Chief Complaint: Dizzy/Sync Clinical Impression: Light-headed feeling, Paresthesia Primary Care Provider: Sallie Segura ED Provider: Pelon Spence Home Meds and New Rx's Prescriptions: Continued bupropion HCl 150 mg tablet extended release 24 hr 150 mg PO DAILY Qty: 7 RF: 0 bupropion HCl 300 mg tablet extended release 24 hr 300 mg PO DAILY Qty: 90 RF: 0 ibuprofen 200 MG capsule 400 mg PO PRN PRNRF: 0 aspirin 81 mg tablet,delayed release (DR/EC) 81 mg PO DAILY Qty: 30 RF: 0 Discharge Instructions Instructions: Paresthesia (ED), Lightheadedness (ED) Additional Instructions: At this time your work-up in the ER does not reveal any obvious emergent process. I have moved up your echocardiogram from Sunday tomorrow at 9:30 AM. I also reached out to the office of your primary care provider who is physically not in the office the spoke with one of her colleagues who will be sure that she is aware of your ER visit today and have you seen sooner than your scheduled appointment on 02-23-20. Please watch for new or worsening symptoms and return to the ER for any concerns Medical Decision Making 49-year-old gentleman presents for intermittent ringing of the ears, paresthesias bilateral upper extremities and around the mouth, having what he describes as an out of body experience. He did have chest pain last week but had no chest pain or shortness of breath today. He was recently seen for similar on the , subsequently admitted to our facility for cardiac rule out, did have elevate troponin at that time. Consultation with cardiology at [facility] and [facility] both occurred. Patient subsequently discharged from the hospital after CTA of the chest, he has now had an outpatient stress test, and scheduled for echocardiogram next week. He was seen by his primary care provider in the meantime and thought that his symptoms were secondary to anxiety and grinding of his teeth. He certainly appears well, nontoxic and tells me that essentially when he came into the ER he became asymptomatic. He is neurologically intact and I do not believe that emergent CT of his head-brain is required for rule out of intracranial process. Given his recent admission and negative stress test this is likely not ACS however given his recent elevated troponin I do believe obtaining serial troponins here in the ER is perfectly reasonable. He did have a CTA during his admission which was unremarkable, PE likely unlikely. We discussed in length that if he continues to have symptoms outpatient ENT and/or neurology referral may be indicated. He did present hypertensive 166/133 however without therapy his pressure did trend down nicely and was down to 135/90. He remained asymptomatic while under my care. Laboratory values reveal unremarkable electrolytes. Creatinine 1.27 giving a GFR of greater than 60. Glucose of 107. Initial troponin is less than 0.05. Patient agreeable to staying here in the ER for observation and obtaining repeat EKG and troponin. He remains asymptomatic. Repeat EKG performed at 1311, reviewed and interpreted with Dr. Manzo. Sinus bradycardia, ventricular to 52. No STEMI. Please see her official report Repeat troponin is less than 0.05. Upon reevaluation he is relieved that his work-up is unremarkable. I was able to move his echocardiogram from next Sunday to tomorrow at 9:30 AM. Given his recent hospitalization, multiple ER visits, including outpatient visit, I did believe reaching out to his primary care provider was reasonable. I spoke with Dr. Gil who was covering for his primary care provider today. She is aware of his visit today and will relay information tomorrow. We will attempt to have the patient seen sooner than the of next month as already scheduled. I discussed this plan with patient. He has no additional questions or concerns and is comfortable discharge. Upon discharge he is asymptomatic. Medical Records Medical records reviewed: Yes I reviewed the patient's medical records. Imaging Data Radiologic Study: Attestation: I personally reviewed and interpreted this imaging study as follows: Imaging: X-Ray My impression: Chest x-ray negative Lab Data Lab results reviewed: Yes I reviewed the patient's lab results. Lab results narrative: Laboratory Tests Range/Units 02/10/20 02/10/20 09:50 13:09 Sodium (136-145) mmol/L 139 Potassium (3.5-5.1) mmol/L 3.7 Chloride (98-107) mmol/L 104 Carbon Dioxide (21.0-32.0) mmol/L 22.1 Anion Gap (3-11) mmol/L 12.9 H BUN (7-18) mg/dL 18 Creatinine (0.70-1.30) mg/dL 1.27 Estimated GFR/1.73 m2 (mL/min/1.73m2) >= 60.00 Glucose (74-106) mg/dL 107 H Calcium (8.5-10.1) mg/dL 9.4 Magnesium (1.8-2.4) mg/dL 2.0 Total Bilirubin (0.2-1.0) mg/dL 0.6 AST (15-37) U/L 16 ALT (16-63) U/L 21 Alkaline Phosphatase (46-116) U/L 49 Troponin I (<0.06) ng/mL < 0.05 < 0.05 Total Protein (6.4-8.2) g/dL 7.6 Albumin (3.4-5.0) g/dL 4.4 ECG Data Attestation: I personally reviewed and interpreted this ECG (s) as follows: Prior ECG tracings: available for review Interpretation: Reviewed and interpreted with Dr. Manzo. Sinus rhythm, ventricular 77. No STEMI. Please see her official read. HPI General Mode of arrival: ambulatory. Date/Time Provider Initiated Documentation: 02/10/20 09:43. Limitations to Documentation: no limitations. Information obtained by: patient. HPI Narrative: 49-year-old gentleman with a history of depression, anxiety, smoking, presents to the ER with 2-week history of intermittent dizziness which she describes as more of a lightheaded feeling, almost as though someone was going to turn his on and off. He denies ever losing consciousness or falling. He reports he has a very difficult time explaining what he is experiencing. Intermittent bilateral ringing of the ears, tingling in both upper extremities as well as some tingling around his lips. He did report mild nausea without vomiting. He was seen in the ER on the for similar symptoms however at that time also had a substernal chest pain, subsequently mid to the hospital for cardiac rule out. Since that time he has had an outpatient stress test and has followed up with his primary care provider. He thought he had a echocardiogram scheduled today however it is actually 1 week from today. While he was driving to the hospital today for his test he developed the symptoms so decided to come to the ER for further evaluation. Denies any headache, chest pain, shortness of breath, fever, weakness whatsoever. Related Data Home Medications Medication Instructions Recorded Confirmed ibuprofen 400 mg PO PRN PRN 08/21/14 02/10/20 aspirin 81 mg PO DAILY #30 tab 01/30/20 02/10/20 bupropion HCl 150 mg 24 hr tablet, 150 mg PO DAILY #7 tab 02/06/20 02/10/20 extended release bupropion HCl 300 mg 24 hr tablet, 300 mg PO DAILY #90 tab 02/06/20 02/10/20 extended release Previous Rx's Medication Instructions Recorded aspirin 81 mg PO DAILY #30 tab 01/30/20 bupropion HCl 150 mg 24 hr tablet, 150 mg PO DAILY #7 tab 02/06/20 extended release bupropion HCl 300 mg 24 hr tablet, 300 mg PO DAILY #90 tab 02/06/20 extended release Allergies Allergy/AdvReac Type Severity Reaction Status Date / Time buspirone [From BuSpar] Allergy Unknown Verified 02/06/20 09:42 dextromethorphan Allergy Unknown Verified 02/06/20 09:42 [From Dimetapp Cold-Congestion] diphenhydramine Allergy Unknown Verified 02/06/20 09:42 [From Dimetapp Cold-Congestion] guaifenesin Allergy Unknown Verified 02/06/20 09:42 [From Dimetapp Cold-Congestion] phenylephrine Allergy Unknown Verified 02/06/20 09:42 [From Dimetapp Cold-Congestion] pseudoephedrine Allergy Unknown Verified 02/06/20 09:42 [From Dimetapp Cold-Congestion] General Stated Complaint: Dizzy/Sync KIARA: 2 Review of Systems Constitutional Constitutional: Denies fatigue, Denies fever(s) and Denies weakness Eyes Eyes: Denies change in vision ENT Ears, Nose, Mouth, and Throat: Denies vertigo, Reports dizziness (Unlike the room is spinning or that he is ataxic), Denies neck pain and Reports tinnitus Cardiovascular Cardiovascular: Denies chest pain and Denies dyspnea Respiratory Respiratory: Denies cough and Denies dyspnea Gastrointestinal Gastrointestinal: Denies abdominal pain, Denies nausea and Denies vomiting Musculoskeletal Musculoskeletal: Denies back pain, Denies neck pain, Denies numbness and Reports tingling Integumentary/Breasts Skin/Breast: Denies rash Neurologic Neurologic: Denies confusion, Denies vertigo, Reports dizziness (Unlike the room is spinning or that he is ataxic), Denies numbness, Reports tingling and Denies weakness Psychiatric Psychiatric: Reports anxiety and Denies confusion Endocrine Endocrine: Denies fatigue [facility] Medical History Basal cell carcinoma (BCC) (Resolved) Generalized anxiety disorder (Chronic) Major depressive disorder (Chronic) Nicotine dependence (Chronic) Surgical History S/P vasectomy (Acute) Family History Mother Depression Mitral valve prolapse Father Hypertension Sister Depression Mitral valve prolapse Sister No problems noted. Son Asthma Daughter No problems noted. Daughter Asthma Maternal Grandfather , 66 Cancer Maternal Grandmother , 86 No problems noted. Paternal Grandfather , 91 No problems noted. Paternal Grandmother , 95 Cancer Social History Smoking/Tobacco Use Status: Current every day Tobacco Type: e-cigarettes Alcohol Intake: current Alcohol Intake frequency: a few times a week Alcohol type: beer Drug use: Daily Substance use type: marijuana Caregiver/Support person: No Household members: other Details: SON ON WEEKENDS Housing: house Communication Needs: None Pets and animals: No Sexually active: No Do you think of yourself as: straight/heterosexual Current gender identity: male What is your relationship status?: Panel score (0-1 are the most socially isolated patients): 0 What type of physical activity do you participate in: other Details: HIKING AND MARTIAL ARTS Duration: 60-90 minutes/day Frequency: 5-6 times per week Seatbelt use: always Drive intox or ride w/intox fast food delivery driver: No Do you feel safe at home: Yes Do you feel safe in your relationship?: Yes Additional Social history: Lives alone in [place], teenage son on weekends. Formally worked in [employer], currently not working Exam Const General: cooperative, healthy appearing, comfortable and no acute distress Orientation: alert, awake and oriented x3 HENMT Head: normal to inspection, normocephalic and atraumatic Ears: external ears normal, TM's normal bilaterally and EAC's normal Face and sinus: normal facial exam Mouth: moist mucous membranes Throat: posterior oropharynx normal Eyes General: appearance normal, both eyes and all related structures Alignment and Position: alignment normal Periorbital: periorbital findings normal Eyelids: eyelids normal Conjunctivae: conjunctivae normal Sclera: sclerae normal Cornea: corneas normal Pupils: PERRL EOM: EOM intact bilaterally Direct ophthalmoscopy: normal light reflex Neck Neck: normal visual inspection, full ROM, no meningeal signs, trachea midline, supple and nontender Resp Effort & Inspection: normal respiratory effort and able to speak in complete sentences Auscultation: clear to auscultation bilaterally Cardio Rate: regular rate Rhythm: regular rhythm GI Palpation: soft and nontender Back/Spine/Pelvis Back: No back tenderness Skin General skin exam: no rashes or lesions noted Neuro General: patient alert, patient awake, patient oriented x3, moves all extremities and no focal motor deficits Cranial Nerves: CN's II-XI intact bilaterally Cognition: normal cognition Speech: speech normal Gait: normal gait Motor: muscle tone normal throughout and strength 5/5 throughout Sensory Exam: no sensory deficits noted Extrem General: normal to inspection, full ROM, capillary refill normal, no pedal edema and no calf tenderness Psych Appearance: grossly normal Mental Status: mental status grossly normal Course Vital Signs Vital signs: Vital Signs Temperature 36.6 C 02/10/20 09:40 Pulse 73 02/10/20 09:40 Respiratory Rate 17 02/10/20 09:40 Blood Pressure 166/133 H 02/10/20 09:40 Pulse Oximetry 98 02/10/20 09:40 Temperature 36.6 C 02/10/20 09:40 Temperature Source Skin 02/10/20 09:40 Pulse 60 02/10/20 12:01 Pulse 68 02/10/20 12:10 Respiratory Rate 13 02/10/20 12:10 Respiratory Effort 02/10/20 09:59 Respiratory Depth Normal 02/10/20 09:59 Respiratory Pattern Normal 02/10/20 09:59 Blood Pressure 110/67 02/10/20 12:01 Blood Pressure Mean 78 02/10/20 12:01 Blood Pressure Position Supine 02/10/20 09:40 Pulse Oximetry 98 02/10/20 12:10 Oxygen Delivery Method Room Air 02/10/20 09:40 Oxygen Flow Rate 0 02/10/20 09:40 Pain Level 0 02/10/20 09:40 Comment Pt sitting pt states at first his ears are ringing and lightheaded, and out of breath from sitting up. 02/10/20 10:03 Lab/Test Results Lab/Test Results: Laboratory Tests Range/Units 02/10/20 09:50 Sodium (136-145) mmol/L 139 Potassium (3.5-5.1) mmol/L 3.7 Chloride (98-107) mmol/L 104 Carbon Dioxide (21.0-32.0) mmol/L 22.1 Anion Gap (3-11) mmol/L 12.9 H BUN (7-18) mg/dL 18 Creatinine (0.70-1.30) mg/dL 1.27 Estimated GFR/1.73 m2 (mL/min/1.73m2) >= 60.00 Glucose (74-106) mg/dL 107 H Calcium (8.5-10.1) mg/dL 9.4 Magnesium (1.8-2.4) mg/dL 2.0 Total Bilirubin (0.2-1.0) mg/dL 0.6 AST (15-37) U/L 16 ALT (16-63) U/L 21 Alkaline Phosphatase (46-116) U/L 49 Troponin I (<0.06) ng/mL < 0.05 Total Protein (6.4-8.2) g/dL 7.6 Albumin (3.4-5.0) g/dL 4.4
--- NOTE | 2020-02-10 13:00 | RT.EKG_ITS ---
APPROVED REPORT Exam: Resting ECG Patient Location: E HR:52 bpm ECG Measurements Heart Rate 52 AXIS RI 142 P 61 QRSd 119 QRS 67 QT 420 T 55 QTc 393 <Conclusion> Sinus bradycardia...rate< 60 Nonspecific intraventricular conduction delay...QRSd >115mS, not LBBB/RBBB
[2020-02-10 14:04] LABS: Troponin I < 0.05 ng/mL (<0.06)
== END 2020-02-10 14:43 | disposition home or self-care (01) ==
PROVIDERS: Emergency Provider Physician Assistant; PCP Nurse Practitioner Family
DX: R42 Dizziness and giddiness (principal); R20.2 Paresthesia of skin; F41.8 Other specified anxiety disorders; F17.210 Nicotine dependence, cigarettes, uncomplicated
CPT/HCPCS: 36415; 36416; 80053; 82962; 93005; 99285; 71046; 83735; 84484; 93010

== ENCOUNTER 2020-02-11 01:23 | Outpatient (CLI) | payer MEDICAID, SELFPAY ==
--- NOTE | 2020-02-11 09:29 | DI.US_ITS ---
APPROVED REPORT EXAM: Comprehensive 2D, Doppler, and color-flow Echocardiogram Patient Location: Out-Patient Final Cleaner: Danii Mejia RDCS (AE) Indications: Chest pain, Elevated troponin Other Information Study Quality: Good Conclusion Normal left ventricular wall thickness and chamber size. Estimated ejection fraction is 65 to 70%. There are no segmental wall motion abnormalities The right ventricle is normal in size and systolic function Both atria are normal in size Structurally normal aortic valve without stenosis or regurgitation Structurally normal mitral valve. Trace mitral regurgitation The tricuspid valve is structurally normal with mild regurgitation. Estimated right ventricular syst olic pressure is normal at 21 mmHg The pulmonic valve is structurally normal without regurgitation Wall motion Left Ventricle The left ventricle is normal size. The left ventricular systolic function is normal. The left ventric ular ejection fraction is within the normal range. There is normal left ventricular wall thickness. T here is normal LV segmental wall motion. There is no ventricular septal defect visualized. LVEF is 65 -70%. Right Ventricle The right ventricle is normal size. The right ventricular systolic function is normal. The RVSP is 21 .4 mmHg. Atria The left atrium size is normal. The right atrium size is normal. The interatrial septum is intact wit h no evidence for an atrial septal defect. Aortic Valve Aortic valve is trileaflet. There is no aortic valvular stenosis. No aortic regurgitation is present. Mitral Valve The mitral valve is normal in structure. No evidence of mitral valve stenosis. Trace mitral regurgita tion. Tricuspid Valve The tricuspid valve is normal in structure. There is no tricuspid valve stenosis. Mild tricuspid regu rgitation. Pulmonic Valve The pulmonary valve is normal in structure. There is no pulmonic valvular stenosis. Trace pulmonic re gurgitation. Great Vessels The aortic root is normal in size. The ascending aorta is mildly dilated. Aortic arch is normal in ca liber. IVC is normal in size and collapses >50% with inspiration. Pericardium There is no pericardial effusion. 2D Dimensions IVSD d PLAX 1.04 cm M: 0.6-1.2 LV Vol A2C d MOD 139.4 mL LVPW d PLAX 1.01 cm M: 0.6 - 1.2 LV Vol A4C d MOD 117.7 mL LVID d PLAX 5.48 cm M: 4.2 - 5.8 LA vol/ BSA A2C s A-L 21.7 mL/m2 LVDs 3.60 cm M: 2.5 - 4.0 LA vol/ BSA A4C s A-L 26.0 mL/m2 Ao Root d 3.37 cm M: 3.1 - 3.7 LA Vol/ BSA Biplane s A-L 26.1 mL/m2 RA Area A4C 18.93 cm2 LA Area A4C s MOD 19.82 cm2 RA Vol/ BSA A4C s A-L 24.9 mL/m2 LA Area A2C s MOD 16.46 cm2 Ao Asc Diam d 3.57 cm M: 2.6 - 3.4 LV EF A4C MOD 64.4 % LV EF Teichholz 62.1 % LV EF A2C MOD 67.0 % LVEF (Walter's) 65.57 % M: 52 - 72 LV EF Biplane MOD 65.6 % LV Volume 92.22 mL M: 62 - 150 SV 83.95 mL LV Volume Index 40.62 mL/m2 M: 34 - 74 SV Index 36.99 mL/m2 LV Vol Biplane MOD 128.0 mL FS 33.80 % LV Diastology MV E' medial 0.178 (>0.07 m/s) E/A Ratio 1.8 LV E/e MED 3.60 (<14) MV E Vmax 0.64 (0.4-1.3 m/s) MV E' lateral 0.148 (>0.1 m/s) MV A Vmax 0.35 (0.4-1.3 m/s) LV E/e LAT 4.30 (<14) MV E/A Ratio 1.84 MV E/E' medial 3.62 MV E/E' lateral 4.34 Aortic Valve LVOT Area 4.58 cm2 AoV Area Vmax 3.31 cm2 LVOT Vmax 1.07 m/s AoV Area/ BSA (Vmax) 1.46 cm2/m2 LVOT Mean Gurmeet. 0.68 m/s EMELY Mean Gurmeet. 3.21 cm2 LVOT Peak Grad 4.6 mmHg EMELY Mean Gurmeet. Index 1.41 cm2/m2 LVOT Mean Grad 2.2 mmHg LVOT VTI 0.208 m LVOT Diam s 2.40 cm AoV Vmax 1.48 m/s Velocity Ratio 0.72 AoV Mean Gurmeet. 0.97 m/s AoV Peak Grad 8.7 mmHg LVOT SV 95.37 mL AoV Mean Grad 4.5 mmHg AoV VTI 0.257 m AoV Area VTI 3.70 cm2 AoV Area/ BSA (VTI) 1.63 cm/m2 Mitral Valve MV DT 175 (160-240 msec) MV PHT 51 msec MV Area PHT 4.32 cm2 Pulmonary Valve PV Vmax 0.94 (0.5-1.5 m/s) RVOT Peak Gr. 3.54 mmHg PV Peak Grad 3.5 mmHg RVOT Mean Gr. 1.70 mmHg PV Mean Grad 2.0 mmHg RVOT VTI 0.155 m PV VTI 0.153 m RVOT Vmax 0.94 m/s Tricuspid Valve TR Peak Grad 18.3 mmHg TR Vmax 2.14 m/s RA Pressure 3.00 mmHg RVSP (TR) 21.4 mmHg
== END 2020-02-11 01:43 ==
PROVIDERS: PCP Nurse Practitioner Family; Visit Provider Nurse Practitioner Family
DX: R79.89 Other specified abnormal findings of blood chemistry (principal); R07.9 Chest pain, unspecified
CPT/HCPCS: 93306

== ENCOUNTER 2020-02-23 21:10 | Outpatient (REF) | payer MEDICAID, SELFPAY ==
[2020-02-23 22:00] LABS: Hemoglobin A1C 5.1 % (3.8-5.6)
[2020-02-23 22:16] LABS: Calculated LDL 131 mg/dL (<100); Cholesterol 192 mg/dL (<200); HDL Cholesterol 47 mg/dL (40-60); TSH 2.47 uIU/mL (0.36-3.74); Triglyceride 70 mg/dL (<150)
[2020-02-23 22:33] LABS: FREE T4 1.34 ng/dL (0.76-1.46)
== END 2020-02-23 21:30 ==
LOC: LBN 21:10
PROVIDERS: PCP Nurse Practitioner Family; Visit Provider Nurse Practitioner Family
DX: Z00.00 Encounter for general adult medical examination without abnormal findings (principal)
CPT/HCPCS: 80061; 83036; 84439; 84443

== ENCOUNTER 2020-03-29 13:06 | Outpatient (REF) | payer MEDICAID, SELFPAY ==
--- NOTE | 2020-03-29 12:57 | SKI_PTH ---
PATIENT: Anant Keys LOC: [facility] U#:[id number] AGE/SX: 49/M ROOM: RE03/29/[address]: Wei Root DO : 1970 BED: DIS: 03/29/2020 SPEC #: [id number] RECD: 03/29/20 18:29 STATUS: SHELLY SHORT #: [id number] ANTON: 03/29/20 12:[address]: Wei Root DEPT: Surgical Specimen RECD BY: Agustina Arshad ENTERED: 03/29/20 18:30 SP TYPE: KAMLA PEÑA DR: KJ Nevarez Tissues: 1 - SKIN BIOPSY(SHAVE/PUNCH) 2 - SKIN BIOPSY(SHAVE/PUNCH) 3 - SKIN BIOPSY(SHAVE/PUNCH) Procedures: SKIN LEVEL 4 Comments: [id number]
== END 2020-03-29 13:26 ==
LOC: LBN 13:06
PROVIDERS: PCP Nurse Practitioner Family; Visit Provider Otolaryngology Otolaryngology/Facial Plastic Surgery
DX: D22.5 Melanocytic nevi of trunk (principal); D49.2 Neoplasm of unspecified behavior of bone, soft tissue, and skin
CPT/HCPCS: 88305

== ENCOUNTER 2020-09-22 19:19 | Outpatient (REF) | payer MEDICAID, SELFPAY ==
[2020-09-24 12:52] LABS: COVID-19 RT-PCR UVMMC Result Negative (Negative)
== END 2020-09-22 19:20 | disposition home or self-care (01) ==
LOC: LBN 19:19
PROVIDERS: PCP Nurse Practitioner Family; Visit Provider Nurse Practitioner Family
DX: Z20.822 Contact with and (suspected) exposure to COVID-19 (principal)
CPT/HCPCS: U0003

== ENCOUNTER 2020-11-11 15:04 | Outpatient (REF) | payer MEDICAID, SELFPAY ==
[2020-11-11 15:17] LABS: HCT 45.1 % (40.0-50.0); HGB 15.2 g/dL (13.5-17.5); MCH 29.1 pg (27.0-33.0); MCHC 33.7 % (32.0-36.0); MCV 86.2 fL (80-95); MPV 9.4 fL (8.0-11.0); Platelet Count 281 10^3/uL (130-400); RBC 5.23 10^6/uL (4.36-5.78); RDW 12.9 % (11.8-14.1); RDW-SD 40.3 fL; WBC 7.51 10^3/uL (4.4-10.8)
[2020-11-11 15:32] LABS: Lithium 0.5 mmol/l (0.6-1.2)
== END 2020-11-11 15:05 | disposition home or self-care (01) ==
LOC: LBN 15:04
PROVIDERS: PCP Nurse Practitioner Family; Visit Provider Nurse Practitioner Family
DX: F31.9 Bipolar disorder, unspecified (principal); Z51.81 Encounter for therapeutic drug level monitoring; Z79.899 Other long term (current) drug therapy
CPT/HCPCS: 85027; 80178

== ENCOUNTER 2020-11-30 03:27 | Outpatient (CLI) | payer MEDICAID, SELFPAY ==
[2020-11-30 09:58] LABS: Abs Immature Grans 0.02 10^3/uL (0.0-0.06); Absolute Basophil Count 0.04 10^3/uL (0.0-0.2); Absolute Monocyte Count 0.58 10^3/uL (0.1-0.8); Absolute Neutrophil Count 3.83 10^3/uL (1.2-6.7); Basophils % 0.6; HCT 42.1 % (40.0-50.0); HGB 14.5 g/dL (13.5-17.5); Immature Grans % 0.3; MCH 29.2 pg (27.0-33.0); MCHC 34.4 % (32.0-36.0); MCV 84.7 fL (80-95); MPV 8.8 fL (8.0-11.0); Monocytes % 8.7; Neutrophils % 57.4; Nucleated RBC 0 %; Platelet Count 261 10^3/uL (130-400); RBC 4.97 10^6/uL (4.36-5.78); RDW-SD 40.3 fL; WBC 6.67 10^3/uL (4.4-10.8)
[2020-11-30 10:57] LABS: Lithium 0.9 mmol/l (0.6-1.2)
[2020-11-30 11:34] LABS: ALT 32 U/L (16-63); AST 12 U/L (15-37); Albumin 4.2 g/dL (3.4-5.0); Alkaline Phosphatase 72 U/L (46-116); Anion Gap 10.3 mmol/L (3-11); BUN 23 mg/dL (7-18); Bilirubin, Total 0.4 mg/dL (0.2-1.0); CO2 26.7 mmol/L (21.0-32.0); CREATININE 1.2 mg/dL (0.70-1.30); Calcium 9.4 mg/dL (8.5-10.1); Calculated LDL 158 mg/dL (<100); Chloride 105 mmol/L (98-107); Cholesterol 220 mg/dL (<200); Glucose 94 mg/dL (74-106); HDL Cholesterol 47 mg/dL (40-60); Potassium 4.5 mmol/L (3.5-5.1); Sodium 142 mmol/L (136-145); Total Protein 7.2 g/dL (6.4-8.2); Triglyceride 75 mg/dL (<150); Vitamin B12 517 pg/mL (193-986)
[2020-11-30 11:48] LABS: PHOSPHORUS 3.2 mg/dL (2.6-4.7)
== END 2020-11-30 03:28 | disposition home or self-care (01) ==
PROVIDERS: PCP Nurse Practitioner Family; Visit Provider Nurse Practitioner Family
DX: F31.62 Bipolar disorder, current episode mixed, moderate (principal); Z51.81 Encounter for therapeutic drug level monitoring; Z79.899 Other long term (current) drug therapy
CPT/HCPCS: 36415; 80053; 80061; 80069; 80178; 82607; 84443; 85025

== ENCOUNTER 2021-04-19 04:05 | Outpatient (CLI) | payer MEDICAID, SELFPAY ==
[2021-04-19 12:58] LABS: Lithium 0.9 mmol/l (0.6-1.2)
== END 2021-04-19 04:06 | disposition home or self-care (01) ==
LOC: LBO 04:05
PROVIDERS: PCP Nurse Practitioner Family; Visit Provider Nurse Practitioner Family
DX: F31.77 Bipolar disorder, in partial remission, most recent episode mixed (principal); F41.9 Anxiety disorder, unspecified; R41.840 Attention and concentration deficit; Z59.89 Other problems related to housing and economic circumstances
CPT/HCPCS: 36415; 80178

== ENCOUNTER 2021-11-01 02:24 | Outpatient (CLI) | payer MEDICAID, SELFPAY | END 2021-11-01 02:25 | disposition home or self-care (01) | LOC: LBO 02:24 | PROVIDERS: PCP Nurse Practitioner Family; Visit Provider Nurse Practitioner Family ==

== ENCOUNTER 2021-11-08 06:18 | Outpatient (CLI) | payer MEDICAID, SELFPAY ==
--- NOTE | 2021-12-08 09:23 | W.CARDEVENT ---
Date of service: 12/08/21 Time of Service: 08:24 Cardiac Event Recorder Referring Provider:: Javan Thibodeaux Indications:: Palpitations Cardiac Event Note: This is a 14-day cardiac event monitor reportedly ordered for palpitations Predominant rhythm was sinus with an average heart rate of 68. Minimum was 41, maximum 144 There were very rare isolated atrial and ventricular ectopic beats There was one 4 beat atrial run Patient symptoms were reported which did not correlate with any dysrhythmia, rather to sinus rhythm in the 60 to 90 bpm range
== END 2021-11-08 06:19 | disposition home or self-care (01) ==
LOC: RT 06:18
PROVIDERS: PCP Nurse Practitioner Family; Visit Provider Nurse Practitioner Family
DX: R00.2 Palpitations (principal)
CPT/HCPCS: 93246

== ENCOUNTER 2021-11-09 04:41 | Outpatient (CLI) | payer MEDICAID, SELFPAY ==
[2021-11-09 14:23] LABS: ALT 23 U/L (16-63); AST 13 U/L (15-37); Albumin 4.7 g/dL (3.4-5.0); Alkaline Phosphatase 75 U/L (46-116); Anion Gap 5.9 mmol/L (3-11); BUN 23 mg/dL (7-18); Bilirubin, Total 0.6 mg/dL (0.2-1.0); CO2 28.1 mmol/L (21.0-32.0); CREATININE 1.2 mg/dL (0.70-1.30); Calcium 9.5 mg/dL (8.5-10.1); Chloride 103 mmol/L (98-107); Glucose 94 mg/dL (74-106); Potassium 4.4 mmol/L (3.5-5.1); Sodium 137 mmol/L (136-145); TSH 2.15 uIU/mL (0.36-3.74); Total Protein 7.7 g/dL (6.4-8.2); Vitamin B12 523 pg/mL (193-986)
[2021-11-09 14:29] LABS: Lithium 0.9 mmol/l (0.6-1.2)
[2021-11-09 14:42] LABS: FREE T4 1.09 ng/dL (0.76-1.46)
[2021-11-09 22:24] LABS: T3,Free 3.1 pg/mL (2.8-5.3)
== END 2021-11-09 04:42 | disposition home or self-care (01) ==
LOC: LBO 04:41
PROVIDERS: Nurse Practitioner Family; PCP Nurse Practitioner Family; Visit Provider Nurse Practitioner Family
DX: F41.9 Anxiety disorder, unspecified (principal); F31.78 Bipolar disorder, in full remission, most recent episode mixed; R46.81 Obsessive-compulsive behavior; R45.4 Irritability and anger; Z79.899 Other long term (current) drug therapy; Z51.81 Encounter for therapeutic drug level monitoring
CPT/HCPCS: 36415; 80048; 80053; 80178; 82565; 82607; 84439; 84443; 84481

== ENCOUNTER 2021-12-05 10:11 | Day surgery (SDC) | payer MEDICAID, SELFPAY ==
--- NOTE | 2021-12-05 06:58 | COLE_ITS ---
Colonoscopy Report Date of procedure: 12/05/21 Pre-op diagnosis general: colon cancer screening Post-op diagnosis procedure note: other (multiple polyps) Procedure: Colonoscopy with polypectomy Surgeon: Cyndie Garcia Anesthesia Type: General LMA/ETT Estimated blood loss (mL): 2 Pathology: other (rectal polyps x6, transverse colon polyps and descending mike yp) Complications: None Disposition: same day Indications: Mr. Batista is a pleasant 51-year-old gentleman who is here today to discuss his first screening colonoscopy.? The procedure was described to him in detail as well as the risks and benefits.? He wishes to proceed. Risks, benefits and complications have been reviewed. Complications include but are not limited to bleeding, pain, perforation, missed small lesion/polyp, sore throat, aspiration and adverse reaction to the medications. Questions were entertained and answered to their satisfaction and they wished to proceed. No guarantees were given or implied. Proceed with colonoscopy under sedation Prep: Miralax/Dulcolax Procedure Start Time: 11:25 Procedure End Time: 11:49 Retraction Time: 14 minutes Findings: multiple polyps <10 mm in size Procedure Description: After informed consent was obtained the patient was taken to the procedure room and placed in a left decubitous position. Monitors were applied and a time out was done. The patients name, date of , procedure, allergies to medications and metal in their body was reviewed. The patient was then sedated. Once sedated and comfortable a rectal exam was done. External exam was normal. Internal exam revealed a normal sphincter tone and no palpable masses. The prostate felt smooth and slowely increased in size. The scope was then introduced and retro-flexed. No internal hemorrhoids, polyps or masses were identified on retro-flexion. The scope was then advanced to the cecum without difficulty. The ileocecal vlave and appendiceal orifice were identified. The prep was adequate. The scope was then slowly retracted over 14 minutes back into the rectum. Polyps were removed with cold forceps in the rectum x6 and transverse colon x1; and with a hot snare in the descending colon x1. There was no diverticulosis noted. The scope was removed and the patient was woken up and taken back to Same day surgery in stable condition. The patient tolerated the procedure well and there were no immediate complications. Follow up: The patient should follow up in 3-5 years unless they develop changes in bowel habits or other new gastrointestinal complaints.
--- NOTE | 2021-12-05 06:59 | W.PM.DSUDISC ---
Discharge Plan Disposition Patient Disposition: HOME Condition: Good Discharge Details Reason For Visit: Colonoscopy Attending Provider: Cyndie Garcia Primary Care Provider: Sallie Segura Home Meds and New Rx's Prescriptions: Continued lithium carbonate 450 mg tablet extended release 900 mg PO QHS Rx Instructions: Take 2 pills in addition to the 300mg pill daily olanzapine 2.5 mg tablet 0.625 mg PO DAILY PRN (Reason: anxiety) lamotrigine 150 mg tablet 175 mg PO DAILY clonidine HCl 0.1 mg tablet 0.1 mg PO QHS Label Comments: Started by Cristina Hansen NP on 02/25/21. He has not started it yet. aj spironolactone 25 mg tablet 25 mg PO HS amlodipine 10 mg tablet 10 mg PO HS Rx Instructions: Take 1 tablet daily Discontinued bisacodyl [Dulcolax (bisacodyl)] 5 mg tablet,delayed release (DR/EC) 5 mg PO ONCE Qty: 4 0RF Rx Instructions: Take according to provider's instructions for colonoscopy prep. polyethylene glycol 3350 17 gram/dose powder 17 g PO ONCE Qty: 238 0RF Rx Instructions: To be taken as directed by prescriber's office for colonoscopy prep. Discharge Instructions Instructions: Colorectal Polyps (DC) Additional Instructions: Findings: multiple polyps Follow up: 3-5 years Please call if you develop: fevers >101.5 Nausea or Vomiting Abdominal pain that is not transient Rectal bleeding that is more then a tbsp A hard abdomen and inability to pass gas DAY SURGERY UNIT POST ENDOSCOPY INSTRUCTIONS Instructions for everyone who is given Anesthesia: For your safety, please do the following for the next 24 Hours: a. Do not drive or operate dangerous equipment b. Do not drink alcohol beverages or use any recreational drugs for the first 24 hours or while taking pain medications. The medications in your body may have a reaction that can be dangerous. c. Do not make any important decisions or sign any important papers 1. Generally there are no restrictions on your activity after a day or so has gone by, but you may feel a bit fatigued for a few days. 2. After you arrive home you may have a light meal and return to a normal diet as you can tolerate it without feeling sick to your stomach. 3. After surgery, you may feel pain or discomfort. This should be only transient, but if it persists please contact your doctor. 4. If there are any questions regarding the findings of your procedure, please feel free to contact your doctor. 6. If you are unable to contact your doctor with a problem, contact the hospital at [phone]. 7. Continue all your regular medications unless directed otherwise. I understand the above instructions and have no questions. Signature of Patient or Responsible Adult Escort Date/Time Name of Responsible Adult Escort Signature of Nurse Date/Time Activity:: Activity as Tolerated Diet:: As Tolerated Discharge Orders Discharge Orders: Discharge Order (Routine); Ordered 12/05/21 Ordered By: Cyndie Garcia
[2021-12-05 10:24] VITALS: BP 146/91; PULSE 80; RESP 17; TEMP 36.1; O2SAT 99
[2021-12-05] MEDS: Lactated Ringers 1,000 ML 80 ML IV (10:46)
--- NOTE | 2021-12-05 10:51 | ANES.PREOP_ITS ---
General Info Date of Service Date Performed: 12/05/21 Height: 6 ft 5 in Weight: 97.1 kg Body Mass Index (BMI): 25.4 Surgical Procedure: Operation Date: 12/05/21 12:35 Proposed Procedure Side Surgeon boyd Garcia MD Meds Allergies and Home Medications Allergies Allergy/AdvReac Type Severity Reaction Status Date / Time bupropion [From Wellbutrin] AdvReac Severe VERY Verified 12/05/21 10:33 RESTLESS, SXS MUCH WORSE buspirone [From BuSpar] AdvReac Unknown increases Verified 12/05/21 10:33 anxiety dextromethorphan AdvReac Unknown Pt. states Verified 12/05/21 10:33 [From Dimetapp made him Cold-Congestion] scattered and hyperactive diphenhydramine AdvReac Unknown Pt. states Verified 12/05/21 10:33 [From Dimetapp made him Cold-Congestion] scattered and hyperactive guaifenesin AdvReac Unknown Pt. states Verified 12/05/21 10:33 [From Dimetapp made him Cold-Congestion] scattered and hyperactive phenylephrine AdvReac Unknown Pt. states Verified 12/05/21 10:33 [From Dimetapp made him Cold-Congestion] scattered and hyperactive pseudoephedrine AdvReac Unknown Pt. states Verified 12/05/21 10:33 [From Dimetapp made him Cold-Congestion] scattered and hyperactive Home Medication Medication Instructions Recorded lithium carbonate 450 mg 900 mg PO QHS 12/16/20 tablet,extended release lamotrigine 150 mg tablet 175 mg PO DAILY 02/03/21 olanzapine 2.5 mg tablet 0.625 mg PO DAILY PRN anxiety 02/24/21 clonidine HCl 0.1 mg tablet 0.1 mg PO QHS 03/25/21 bisacodyl 5 mg tablet,delayed 5 mg PO ONCE #4 tabs 11/29/21 release (Dulcolax (bisacodyl)) polyethylene glycol 3350 17 17 g PO ONCE #238 grams 11/29/21 gram/dose oral powder amlodipine 10 mg tablet 10 mg PO HS 12/02/21 spironolactone 25 mg tablet 25 mg PO HS 12/02/21 Current Visit Medications: Current Medications Generic Name Dose Route Start Last Admin Trade Name Freq PRN Reason Stop Dose Admin Hyoscyamine Sulfate 0.125 mg 12/05/21 07:00 Hyoscyamine 0.125 Mg Sl/Oral/Chew SL DIRECTED PRN Ringer's Solution 1,000 mls @ 80 mls/hr 12/05/21 06:00 12/05/21 10:46 IV 01/01/22 23:59 80 mls/hr INFUSION SARINA Administration IV Miscellaneous Supplies 1 each 12/05/21 06:00 Iv Access IV 01/01/22 23:59 DIRECTED SARINA Ondansetron HCl 4 mg 12/05/21 07:00 Ondansetron 4 Mg/2 Ml Vial IVP Q4H PRN PRN Nausea / Vomiting Sodium Chloride 0 ml 12/05/21 06:00 Normal Saline Flush 10 Ml Syr IV 01/01/22 23:59 PRN PRN Sodium Chloride 0 ml 12/05/21 06:00 Normal Saline 10 Ml Vial IJ 01/01/22 23:59 DIRECTED PRN Sterile Water 0 ml 12/05/21 06:00 Water,Injection,Sterile 10 Ml Vial IJ 01/01/22 23:59 DIRECTED PRN PFSH Active Problems Active Problems: Problem Status Onset Code Heart palpitations R00.2 [place] level checked every six months Z79.899 Essential hypertension I10 Bipolar disorder F31.9 Major depressive disorder F32.9 Generalized anxiety disorder F41.1 Nicotine dependence F17.200 Medical History Medical History Allergic rhinitis Basal cell carcinoma [place]BCC) [place] [facility] [place] Left check BCC [place] [facility] [place] Hyperlipidemia Lumbar back pain Hx of L2 herniated disc Tinnitus Surgical History Surgical History S/P vasectomy Tobacco Smoking/Tobacco Use Status: Current every day Tobacco Type: e-cigarettes Passive smoking exposure: Yes Second hand exposure: Yes Alcohol Alcohol Intake: current Alcohol intake frequency: holidays/special occasions only Alcohol type: beer and other Substance Use Substance use: Current Sobriety Substance use type: does not use Vital Signs and Lab Results Vital Signs Most Recent Vital Signs in EMR: Most Recent Vital Signs Temp Pulse Resp BP Pulse Ox 36.1 C L 80 17 146/91 H 99 12/05/21 10:24 12/05/21 10:24 12/05/21 10:24 12/05/21 10:24 12/05/21 10:24 Lab Results Blood Type / Crossmatch: No Data to Display Complete Blood Count: No Data to Display Complete Metabolic Panel: Sodium Level 137 mmol/L (136-145) 11/09/21 12:47 Potassium Level 4.4 mmol/L (3.5-5.1) 11/09/21 12:47 Chloride Level 103 mmol/L (98-107) 11/09/21 12:47 Carbon Dioxide Level 28.1 mmol/L (21.0-32.0) 11/09/21 12:47 Blood Urea Nitrogen 23 mg/dL (7-18) H 11/09/21 12:47 Creatinine 1.2 mg/dL (0.70-1.30) 11/09/21 12:47 Estimated GFR/1.73 m2 >= 60.00 (mL/min/1.73m2) 11/09/21 12:47 Calcium Level 9.5 mg/dL (8.5-10.1) 11/09/21 12:47 Albumin 4.7 g/dL (3.4-5.0) 11/09/21 12:47 Glucose Level 94 mg/dL (74-106) 11/09/21 12:47 Liver Function Panel: Alanine Aminotransferase (ALT/SGPT) 23 U/L (16-63) 11/09/21 12: 47 Aspartate Amino Transf (AST/SGOT) 13 U/L (15-37) L 11/09/21 12: 47 Coagulation Panel: No Data to Display Cardiac Panel: No Data to Display Arterial Blood Gas: No Data to Display Venous Blood Gas: No Data to Display Pancreas Panel: No Data to Display Thyroid Panel: Thyroid Stimulating Hormone (TSH) 2.15 uIU/mL (0.36-3.74) 11/09 12:47 Infectious Disease: No Data to Display Blood Cultures: No Data to Display Toxicology Panel: No Data to Display Imaging and Studies Imaging and Studies Study information below may be from another EMR and interpreted by another provider. Please see original notes in EMR for more complete details. EKG Summary: <Conclusion> Sinus bradycardia...rate< 60 Nonspecific intraventricular conduction delay...QRSd >115mS, not LBBB/RBBB 02/16/20 Stress Test Summary: Stress ECG Conclusion 1. Patient exercised for 12 minutes (13 METS) 2. There were no symptoms suggestive of ischemia. 3. There is no evidence of ischemia on the ECG portion exam. MPI Conclusion Patient's ejection fraction was 52% with stress. There were no wall motion abnormalities. There was no evidence of ischemia on the imaging portion of the exam. This represents a normal SPECT stress test. 02/02/20 Echocardiogram Summary: Conclusion Normal left ventricular wall thickness and chamber size. Estimated ejection fraction is 65 to 70%. There are no segmental wall motion abnormalities The right ventricle is normal in size and systolic function Both atria are normal in size Structurally normal aortic valve without stenosis or regurgitation Structurally normal mitral valve. Trace mitral regurgitation The tricuspid valve is structurally normal with mild regurgitation. Estimated right ventricular systolic pressure is normal at 21 mmHg The pulmonic valve is structurally normal without regurgitation 02/11/20 Anesthesia Assessment and Plan Anesthesia History Personal History: No History of Anesthesia Complications and Malignant Hyperthermia Family History: No Family History of Anesthesia Complications Exercise Tolerance Exercise Tolerance: Metabolic Equivalents>4 Pertinent Negatives Pertinent Negatives: No Symptoms of GERD, No Major Cardiovascular Symptoms or Complaints, No Major Pulmonary Symptoms or Complaints and No History of CVA/TIA Cardiac & Pulmonary Exam Cardiac Exam: Normal S1/S2 Heart Sounds Pulmonary Exam: Clear Bilateral Breath Sounds Implantable Cardiac Device Does patient have a Pacemaker or an ICD?: No Airway Exam Known Difficult Airway: No Mallampati Class: 2 Mouth Opening: Normal (> 3cm) Thyromental Distance: Greater than 3 cm Neck Range of Motion: Full ROM Neck Circumference: Normal Teeth Condition: Normal Dentition ASA Classification ASA Score: ASA 2 Emergency Case?: No NPO Status NPO Status: NPO Clears >2 hours, Solids >8 hours Anesthesia Plan Resuscitation Status: Full Code Anesthesia Technique: General Anesthesia Airway Planned: Natural Airway Monitors Used: Standard Monitors
[2021-12-05 11:14] VITALS: BMI 25.4
--- NOTE | 2021-12-05 11:30 | BOWEL_PTH ---
PATIENT: Anant Keys LOC: [facility] U#:[id number] AGE/SX: 51/M ROOM: RE12/05/[address]: Cyndie Garcia MD : 1970 BED: DIS: 12/05/2021 SPEC #: [id number] RECD: 12/05/21 12:10 STATUS: SHELLY REЮлия #: [id number] ANTON: 12/05/21 11:[address]: Cyndie Garcia DEPT: Surgical Specimen RECD BY: Agustina Arshad ENTERED: 12/05/21 12:13 SP TYPE: Bowel OTHR DR: Sallie Segura, KJ Tissues: 1 - BIOPSY BOWEL 2 - BIOPSY BOWEL 3 - BIOPSY BOWEL 4 - BIOPSY BOWEL Procedures: GROSS AND MICRO LEVEL 4 Comments: [id number]
[2021-12-05 12:01] VITALS: BP 99/75; PULSE 60; RESP 17; TEMP 36.4; O2SAT 95
[2021-12-05 12:19] VITALS: BP 108/80; PULSE 57; RESP 18; TEMP 36.4; O2SAT 95
--- NOTE | 2021-12-05 12:20 | W.ANESPOSTOP ---
Postoperative Evaluation Date, Time and Location Date Performed: 12/05/21 Time Performed: 12:10 Patient Location: Day Surgery Unit Vital Signs Most Recent Imported Vital Signs: Most Recent Vital Signs Temp Pulse Resp BP Pulse Ox 36.4 C L 60 17 99/75 L 95 12/05/21 12:01 12/05/21 12:01 12/05/21 12:01 12/05/21 12:01 12/05/21 12:01 Pain Score Most Recent Pain Score: Most Recent Pain Score Pain Level 0 12/05/21 10:24 Assessment Mental Status: Awake (Alert & Oriented to Patient Baseline) Airway and Respiratory Function: Patent airway with normal (patient baseline) respiratory exam Cardiovascular Function: Hemodynamically Stable Hydration Status: Adequately Hydrated Nausea & Vomiting: No Nausea or Vomiting Pain: Pt. Denies Any Pain Peripheral Nerve Block: Patient did not receive a nerve block
== END 2021-12-05 13:08 | disposition home or self-care (01) ==
PROVIDERS: PCP Nurse Practitioner Family; Visit Provider Surgery
PROC: 0DJD8ZZ Inspection of Lower Intestinal Tract, Via Natural or Artificial Opening Endoscopic (ICD-10-PCS; CPT 45378; principal; 2021-12-05 12:30)
DX: Z12.11 Encounter for screening for malignant neoplasm of colon (principal); K63.5 Polyp of colon; K62.1 Rectal polyp
CPT/HCPCS: 45385; 45380; 88305

== ENCOUNTER 2022-10-09 01:38 | Outpatient (CLI) | payer MEDICAID, SELFPAY ==
--- NOTE | 2022-10-09 08:00 | DI.RAD_ITS ---
Exam(s) XR KNEE RT 3V AP,LAT,TBAITHA EXAM: XR KNEE RT 3V AP,LAT,TABITHA CLINICAL HISTORY: right knee pain intermittent,m25.561. TECHNIQUE: 2D digital imaging was performed. Three views. COMPARISON: No exams were available for comparison FINDINGS: BONES: No acute fracture is present. No bony destructive lesion is seen. There is an exostosis off th e lateral proximal tibial metaphysis. JOINTS: The knee is normally aligned. No joint effusion is seen. Joint spaces are maintained. No s ignificant degenerative changes. SOFT TISSUE: Smoothly marginated bony density seen near tibial tubercle. IMPRESSION: Proximal tibial exostosis. DATA REPOSITORY: RADIATION DOSE DELIVERED:
== END 2022-10-09 01:58 ==
LOC: DI 01:38
PROVIDERS: PCP Nurse Practitioner Family; Visit Provider Nurse Practitioner Family
DX: M25.561 Pain in right knee (principal); M84.861 Other disorders of continuity of bone, right tibia
CPT/HCPCS: 73562

== ENCOUNTER 2022-11-22 02:17 | Outpatient (CLI) | payer MEDICAID, SELFPAY ==
[2022-11-22 15:22] LABS: Abs Immature Grans 0.02 10^3/uL (0.0-0.06); Absolute Basophil Count 0.06 10^3/uL (0.0-0.2); Absolute Eosinophil Count 0.38 10^3/uL (0.0-0.7); Absolute Lymphocyte Count 3.18 10^3/uL (1.2-3.4); Absolute Monocyte Count 0.61 10^3/uL (0.1-0.8); Absolute Neutrophil Count 5.54 10^3/uL (1.2-6.7); Basophils % 0.6; Eosinophils % 3.9; HCT 46.2 % (40.0-50.0); HGB 15.8 g/dL (13.5-17.5); Immature Grans % 0.2; Lymphocytes % 32.5; MCH 28.5 pg (27.0-33.0); MCHC 34.2 % (32.0-36.0); MCV 83 fL (80-95); MPV 8.7 fL (8.0-11.0); Monocytes % 6.2; Neutrophils % 56.6; Platelet Count 304 10^3/uL (130-400); RBC 5.54 10^6/uL (4.36-5.78); RDW 12.8 % (11.8-14.1); WBC 9.79 10^3/uL (4.4-10.8)
[2022-11-22 15:58] LABS: ALT 25 U/L (16-63); AST 13 U/L (15-37); Albumin 4.5 g/dL (3.4-5.0); Alkaline Phosphatase 77 U/L (46-116); Anion Gap 8.1 mmol/L (3-11); BUN 26 mg/dL (7-18); Bilirubin, Total 0.3 mg/dL (0.2-1.0); CO2 25.9 mmol/L (21.0-32.0); CREATININE 1.5 mg/dL (0.70-1.30); Calcium 9.5 mg/dL (8.5-10.1); Chloride 105 mmol/L (98-107); Estimated GFR 56.02 (mL/min/1.73m2); Glucose 99 mg/dL (74-106); Potassium 3.9 mmol/L (3.5-5.1); Sodium 139 mmol/L (136-145); Total Protein 8.1 g/dL (6.4-8.2)
[2022-11-22 16:20] LABS: C-Reactive Protein 0.29 mg/dL (0.0-0.3); FREE T4 1.16 ng/dL (0.76-1.46); TSH 1.79 uIU/mL (0.36-3.74)
[2022-11-22 17:38] LABS: Lithium 0.3 mmol/l (0.6-1.2)
[2022-11-23 19:38] LABS: PSA, Screening 0.5 ng/mL (<=3.5)
== END 2022-11-22 02:18 | disposition home or self-care (01) ==
PROVIDERS: Nurse Practitioner Family; PCP Nurse Practitioner Family; Visit Provider Nurse Practitioner Family
DX: F31.89 Other bipolar disorder (principal); Z79.899 Other long term (current) drug therapy; Z12.5 Encounter for screening for malignant neoplasm of prostate
CPT/HCPCS: 36415; 80053; 84153; 80178; 84439; 84443; 85025; 86140

== ENCOUNTER 2023-07-18 11:03 | Emergency (ER) | payer MEDICAID, SELFPAY ==
[2023-07-18 11:10] VITALS: BP 150/99; PULSE 88; RESP 18; TEMP 36.8; O2SAT 98
--- NOTE | 2023-07-18 11:24 | W.ED.GENAD ---
HPI General Stated Complaint: Laceration KIARA: 4 Date/Time Provider Initiated Documentation: 07/18/23 11:23. HPI Narrative: MDM This is an overall very well-appearing normothermic and not tachycardic [id number] 52-year-old male with hemostatic right middle finger laceration which will allow to heal by secondary intention. No pain out of proportion to suggest necrotizing soft tissue infection. Good range of motion throughout right middle finger on the flexion and extension so I am not concerned for tendon injury. No signs of infection so patient and I discussed return to the emergency department for foul-smelling drainage pus fevers or streaking signs of infection. No history of falls or head strike to suggest benefit from CT head. Will proceed with empiric trial of expectant outpatient management. Patient's tetanus was updated in the emergency department. HPI This is a howge-rdoc-iytneoqj 52-year-old male arrived to the emergency department via private vehicle in the setting of a laceration he sustained to his right middle finger earlier today. He was reportedly walking on his metal roof wearing socks when he inadvertently slipped. He was attempting to put the cap on a chimney. He caught himself from falling using his outstretched right hand and cut his right hand on the metal roof. He says that he is due for his tetanus in the next several years. He rinsed his hand prior to arrival. He was in his usual state of health earlier today with no fevers chills nausea vomiting chest pain or shortness of breath. Exam General: Well-appearing in no acute distress speaking in complete sentences. Head: Normocephalic, atraumatic. Eye: Extraocular eye movements intact. No conjunctival injection. No scleral icterus. Ear, nose, mouth, throat: Grossly normal inspection. Normal voice, handling secretions normally. Neck: Trachea midline. Cardiovascular: Well-perfused distal extremities. Respiratory: Nonlabored respiration. Gastrointestinal: Nondistended abdomen. Musculoskeletal: On the long finger of the right hand just distal to the PIP joint there is an approximately 1 cm hemostatic laceration that barely violates the subcutaneous tissue. Patient has intact flexion and extension in the left long finger across the MCP, PIP, and DIP joints. Right hand warm well-perfused with 2+ right radial pulse. Skin: Normal for age and race, grossly normal temperature and turgor. No acute rash. Neurologic: Alert and appropriate, no apparent acute deficits. Psychiatric: Mood and manner are appropriate. Grooming and personal hygiene are appropriate. Related Data Home Medications Medication Instructions Recorded Confirmed lamotrigine 100 mg tablet 100 mg PO DAILY 03/01/22 03/02/23 lamotrigine 25 mg tablet 25 mg PO DAILY 03/01/22 03/02/23 lithium carbonate 300 mg 600 mg PO QHS 03/01/22 03/02/23 tablet,extended release spironolactone 50 mg tablet 50 mg PO DAILY #90 tabs 11/03/22 03/02/23 amlodipine 10 mg tablet 10 mg PO DAILY #90 tabs 02/14/23 03/02/23 Previous Rx's Medication Instructions Recorded spironolactone 50 mg tablet 50 mg PO DAILY #90 tabs 11/03/22 amlodipine 10 mg tablet 10 mg PO DAILY #90 tabs 02/14/23 Allergies Allergy/AdvReac Type Severity Reaction Status Date / Time bupropion [From Wellbutrin] AdvReac Severe VERY Verified 03/02/23 08:19 RESTLESS, SXS MUCH WORSE buspirone [From BuSpar] AdvReac Unknown increases Verified 03/02/23 08:19 anxiety dextromethorphan AdvReac Unknown Pt. states Verified 03/02/23 08:19 [From Dimetapp made him Cold-Congestion] scattered and hyperactive diphenhydramine AdvReac Unknown Pt. states Verified 03/02/23 08:19 [From Dimetapp made him Cold-Congestion] scattered and hyperactive guaifenesin AdvReac Unknown Pt. states Verified 03/02/23 08:19 [From Dimetapp made him Cold-Congestion] scattered and hyperactive phenylephrine AdvReac Unknown Pt. states Verified 03/02/23 08:19 [From Dimetapp made him Cold-Congestion] scattered and hyperactive pseudoephedrine AdvReac Unknown Pt. states Verified 03/02/23 08:19 [From Dimetapp made him Cold-Congestion] scattered and hyperactive PFSH All Active Problems (Updated 07/19/23 @ 16:08 by Dakota Mai MD) Laceration of right middle finger (Acute) Bipolar disorder (Chronic) Major depressive disorder (Chronic) Generalized anxiety disorder (Chronic) Essential hypertension (Chronic) Hyperlipidemia (Chronic) Allergic rhinitis (Chronic) Lumbar back pain (Chronic) Hx of L2 herniated disc Tinnitus (Chronic) Nicotine dependence (Chronic) Tubular adenoma of colon (Chronic) 2021 colonoscopy Medical History Basal cell carcinoma (BCC) Right cheek s/p excision [place] [facility] [place] 2021 Left check BCC s/p excision at [facility] [place] Surgical History S/P colonoscopy (12/05/21) S/P vasectomy Family History Mother Depression Mitral valve prolapse Father , 75 from metastatic pancreatic cancer Hypertension Heart disease Pancreatic cancer metastasized to liver Sister Depression Mitral valve prolapse Sister No problems noted. Son Asthma Daughter No problems noted. Daughter Asthma Maternal Grandfather , 66 Stomach cancer Maternal Grandmother , 86 No problems noted. Paternal Grandfather , 91 No problems noted. Paternal Grandmother , 95 Cancer Unknown type Social History Smoking/Tobacco Use Status: Current, status unknown Tobacco Type: e-cigarettes Quit status: considering quitting Second Hand Exposure: Yes Smoking risk assessment performed?: Yes Alcohol Intake: current Alcohol Intake frequency: holidays/special occasions only Alcohol type: beer and other Drug use: Current Sobriety Substance use type: marijuana Caregiver/Support person: No Household members: children and other Details: SON ON WEEKENDS Housing: house Communication Needs: None Pets and animals: No Sexually active: No Do you think of yourself as: straight/heterosexual Current gender identity: male What is your relationship status?: How often do you talk on the phone with friends or family?: three or more times per week How often do you attend oriental orthodox or sabianism services?: decline to answer Do you belong to any clubs or organized social groups?: no Panel score (0-1 are the most socially isolated patients): 1 What type of physical activity do you participate in: other Details: HIKING AND [employer], wood Duration: > 90 minutes/day Frequency: 5-6 times per week Svetlana/Gnosticism: None Special svetlana needs: No Seatbelt use: always Drive intox or ride w/intox bookmobile driver: No Do you feel safe at home: Yes Do you feel safe in your relationship?: Yes Additional Social history: Lives alone in [place], teenage son on weekends. Formally worked in [employer], currently not working Course Vital Signs Vital signs: Vital Signs Temperature 36.8 C 07/18/23 11:10 Pulse 88 07/18/23 11:10 Respiratory Rate 18 07/18/23 11:10 Blood Pressure 150/99 H 07/18/23 11:10 Temperature 36.8 C 07/18/23 11:10 Temperature Source Oral 07/18/23 11:10 Pulse 88 07/18/23 11:10 Respiratory Rate 18 07/18/23 11:10 Blood Pressure 150/99 H 07/18/23 11:10 Blood Pressure Position Supine 07/18/23 11:10 Oxygen Delivery Method Room Air 07/18/23 11:10 Oxygen Flow Rate 0 07/18/23 11:10 Medical Decision Making Quality:SDOH Health Related Social Needs: No Data to Display Discharge Plan Disposition Patient Disposition: Home Discharge Details Clinical Impression: Laceration of right middle finger Primary Care Provider: Sallie Segura ED Provider: Dakota Mai Ernest Meds and New Rx's Prescriptions: Continued lamotrigine 100 mg tablet 100 mg PO DAILY Rx Instructions: 1 tablet daily in addition to 25mg tablet lamotrigine 25 mg tablet 25 mg PO DAILY Rx Instructions: 1 tablet daily in addition to 100mg tablet lithium carbonate 300 mg tablet extended release 600 mg PO QHS spironolactone 50 mg tablet 50 mg PO DAILY Qty: 90 3RF amlodipine 10 mg tablet 10 mg PO DAILY Qty: 90 3RF Discharge Instructions Instructions: Finger Laceration (ED) Additional Instructions: You are seen in the emergency department for your finger laceration. We will allow this to heal by secondary intention as we discussed, please soak your finger once a day with warm soapy water. Please return to the emergency department if you develop streaking signs of infection such as redness from your wound, fevers, or foul-smelling drainage.Your tetanus was updated. For your pain please take medications as follows: 1. Take acetaminophen (Tylenol), 1,000 mg (two 500 mg tabs) every 6 hours 2. Take ibuprofen (Advil), 400 mg every 6 hours. Discharge Data Discharge Date/Time-TO BE ENTERED AT DEPARTURE: 07/18/23 12:16
== END 2023-07-18 12:16 | disposition home or self-care (01) ==
PROVIDERS: Emergency Provider Emergency Medicine; PCP Nurse Practitioner Family
DX: S61.212A Laceration without foreign body of right middle finger without damage to nail, initial encounter (principal); W26.8XXA Contact with other sharp object(s), not elsewhere classified, initial encounter; F17.290 Nicotine dependence, other tobacco product, uncomplicated; Y93.H9 Activity, other involving exterior property and land maintenance, building and construction; Y92.018 Other place in single-family (private) house as the place of occurrence of the external cause
CPT/HCPCS: 90715; 99282

== ENCOUNTER 2023-07-31 04:58 | Outpatient (CLI) | payer MEDICAID, SELFPAY ==
[2023-07-31 12:37] LABS: Anion Gap 7.4 mmol/L (3-11); BUN 18 mg/dL (7-18); CO2 28.6 mmol/L (21.0-32.0); CREATININE 1.4 mg/dL (0.70-1.30); Calcium 9.6 mg/dL (8.5-10.1); Chloride 105 mmol/L (98-107); Estimated GFR 60.85 (mL/min/1.73m2); FREE T4 1.13 ng/dL (0.76-1.46); Glucose 76 mg/dL (74-106); Potassium 4.2 mmol/L (3.5-5.1); Sodium 141 mmol/L (136-145); TSH 3.91 uIU/mL (0.36-3.74)
== END 2023-07-31 04:59 | disposition home or self-care (01) ==
PROVIDERS: PCP Nurse Practitioner Family; Visit Provider Nurse Practitioner Family
DX: F31.71 Bipolar disorder, in partial remission, most recent episode hypomanic (principal); R45.4 Irritability and anger; R46.81 Obsessive-compulsive behavior
CPT/HCPCS: 36415; 80048; 84439; 84443

== ENCOUNTER 2023-08-03 01:22 | Outpatient (CLI) | payer MEDICAID, SELFPAY ==
[2023-08-03 13:38] LABS: Lithium 0.6 mmol/l (0.6-1.2)
== END 2023-08-03 01:23 | disposition home or self-care (01) ==
LOC: LBO 01:22
PROVIDERS: PCP Nurse Practitioner Family; Visit Provider Nurse Practitioner Family
DX: R46.81 Obsessive-compulsive behavior (principal); F31.71 Bipolar disorder, in partial remission, most recent episode hypomanic; R45.5 Hostility
CPT/HCPCS: 80178

== ENCOUNTER → 2023-09-14 16:36 | Outpatient (CLI) | payer MEDICAID, SELFPAY ==
--- NOTE | 2023-09-14 12:00 | DI.RAD_ITS ---
Exam(s) XR CHEST 2V PA LATERAL EXAM: XR CHEST 2V PA LATERAL CLINICAL HISTORY: cough sob 6 days E05.9 R06.02 TECHNIQUE: 2D digital imaging was performed of the chest. Three images were obtained. PA and later al views were obtained. COMPARISON: CR XR CHEST 2V PA LATERAL from 02/10/2020 FINDINGS: MEDIASTINUM: Normal. HEART: Normal. PULMONARY VASCULATURE: Normal. LUNGS: Clear. PLEURAL SPACE: No pleural effusion or pneumothorax. BONE:Within normal limits for the patient's age. OTHER FINDINGS:Normal. IMPRESSION: No acute pulmonary findings. DATA REPOSITORY: RADIATION DOSE DELIVERED:
== END ==
PROVIDERS: PCP Nurse Practitioner Family; Visit Provider Nurse Practitioner Acute Care
DX: R06.02 Shortness of breath (principal); R05.8 Other specified cough
CPT/HCPCS: 71046

== ENCOUNTER 2024-01-09 01:51 | Outpatient (CLI) | payer MEDICAID, SELFPAY ==
[2024-01-09 13:52] LABS: ALT 27 U/L (16-63); AST 15 U/L (15-37); Albumin 4.4 g/dL (3.4-5.0); Alkaline Phosphatase 63 U/L (46-116); Anion Gap 11.8 mmol/L (3-11); BUN 16 mg/dL (7-18); Bilirubin, Total 0.45 mg/dL (0.2-1.0); CO2 23.2 mmol/L (21.0-32.0); CREATININE 1.2 mg/dL (0.70-1.30); Calcium 9.4 mg/dL (8.5-10.1); Chloride 106 mmol/L (98-107); Estimated GFR 72.76 (mL/min/1.73m2); Glucose 107 mg/dL (74-106); PHOSPHORUS 2.8 mg/dL (2.6-4.7); Potassium 4.3 mmol/L (3.5-5.1); Sodium 141 mmol/L (136-145); TSH (W/Ref FT4) 2.66 uIU/mL (0.36-3.74); Total Protein 7.7 g/dL (6.4-8.2)
[2024-01-09 13:56] LABS: Lithium 0.7 mmol/L (0.6-1.2)
[2024-01-09 14:04] LABS: Calculated LDL 112 mg/dL (<100); Cholesterol 177 mg/dL (<200); HDL Cholesterol 51 mg/dL (40-60); Triglyceride 73 mg/dL (<150)
[2024-01-09 22:03] LABS: Lab Add On Test DONE
[2024-01-09 23:07] LABS: Hepatitis C Ab w Rflx HCV PCR Negative (Negative)
[2024-01-10 18:58] LABS: HBs Antibody, Quant >1000.0 mIU/mL (See Note); HIV-1/2 Ag & Ab Screen Negative (Negative); Hep B Surface Ab Positive (See Note); Hepatitis B Core Antibody Negative (Negative); Hepatitis B Surface Antigen Negative (Negative)
== END 2024-01-09 01:52 | disposition home or self-care (01) ==
LOC: LBO 01:51
PROVIDERS: Nurse Practitioner Family; PCP Nurse Practitioner Family; Visit Provider Nurse Practitioner Family
DX: I10 Essential (primary) hypertension (principal); E78.5 Hyperlipidemia, unspecified; Z11.59 Encounter for screening for other viral diseases; F31.74 Bipolar disorder, in full remission, most recent episode manic; F41.1 Generalized anxiety disorder; Z56.0 Unemployment, unspecified; R45.4 Irritability and anger; R46.81 Obsessive-compulsive behavior
CPT/HCPCS: 36415; 80053; 80061; 80069; 86704; 86706; 86803; 87340; 87389; 80178; 83036; 84443

== ENCOUNTER 2024-03-20 02:30 | Outpatient (CLI) | payer MEDICAID, SELFPAY ==
--- NOTE | 2024-03-20 | DI.MAMMO_ITS ---
Exam(s) MAMMO DIAGNOSTIC BI US BREAST LT LIMITED EXAM: MAMMO DIAGNOSTIC BI and U/S breast LT limited CLINICAL HISTORY: painful lump behind left nipple,N63.20. TECHNIQUE: Craniocaudal and mediolateral oblique Full Field Digital Mammography views with Computer Aided Diagnosis followed by Tomosynthesis and limited left breast ultrasound. COMPARISON: No priors for comparison FINDINGS: Mammography/Tomosynthesis: Masses/Architectural Distortion: There is fibroglandular tissue seen in the retroareolar regions of b oth breasts left much greater than right. Microcalcifictions: No suspicious pleomorphic-type are seen. Skin Thickening/Nipple Retraction: None. Limited left hypoechoic breast US: Echotexture: Normal appearance of the glandular tissue. Shadowing: No suspicious foci. Cyst: None. Solid lesions: Ill-defined tissue is seen in the retroareolar region of the left breast corresponding to the mammographic abnormality. The findings are most consistent with gynecomastia, most prominent on the right. Ductal dilation: None. IMPRESSION: 1. Findings consistent with bilateral gynecomastia, right greater than left. 2. The findings were discussed with the patient on the date of the examination. BI-RADS Category 1 - Negative Breast Density - Category B - Scattered areas of fibroglandular density Breast density Category C or D implies that the patient has dense breast tissue. Dense breast tissue can make it harder to find cancer on a mammogram. Dense breast tissue is also associated with an incr eased risk of breast cancer. This information about the result of the mammogram report was provided to the patient to raise their awareness. Use this report when you speak with the patient about their risks for breast cancer, which includes their family history. At that time, you may recommend additional screening tests (Ultrasoun d or MRI) as these tests may add significant information. A negative radiographic report should not delay biopsy if a dominant or clinically suspicious mass is present. Up to ten percent of cancers are not identified on mammography. A negative report may reinforce clinical impression. Adenosis and dense breasts may obscure an underlying neoplasm. False positive reports average 6 to 10%. Patient will receive a letter notifying them of these results.
== END 2024-03-20 02:50 ==
LOC: DI 02:30
PROVIDERS: PCP Nurse Practitioner Family; Visit Provider Nurse Practitioner Family
DX: Z12.31 Encounter for screening mammogram for malignant neoplasm of breast (principal); N63.21 Unspecified lump in the left breast, upper outer quadrant
CPT/HCPCS: 76642; 77062; 77066; G0279

== ENCOUNTER 2024-03-25 01:06 | Outpatient (CLI) | payer MEDICAID, SELFPAY ==
--- NOTE | 2024-03-25 07:45 | DI.CTLCSR_ITS ---
Exam(s) CT CHEST LUNG CANCER SCREEN EXAM: CT CHEST LUNG CANCER SCREEN CLINICAL HISTORY: Screening for lung cancer,FORMER SMOKER, Z87.891 TECHNIQUE: Imaging Protocol: Axial computed tomography images with coronal and sagittal reformatted images were created and reviewed. Low dose screening protocol. COMPARISON: CT CT THORAX CTA from 01/30/2020 CR XR CHEST 2V PA LATERAL from 09/14/2023 FINDINGS: Tracheobronchial tree: No bronchiectasis or mucus plugging. Mediastinum and Cece: No dominant adenopathy or fluid collection. Pulmonary parenchyma: No consolidation or dominant measurable mass. No visible emphysematous changes. Lung Nodules: None. Pleura: No effusion. No pneumothorax. Heart: The heart is not dilated. No coronary artery calcifications are seen. Aorta: Thoracic aorta non-dilated. Upper abdomen: Unremarkable. Bones: Unremarkable for age. Soft Tissues: Mild left gynecomastia. IMPRESSION: No suspicious pulmonary nodules. Lung RADS Cat 1 - Negative: No nodules and definitely benign nodules Lung-RADS 1.0 CATEGORIES: Category 0 - Prior chest CT exam(s) being located for comparison. Category 1 - Annual screening in 12 months. No nodules or definitely benign nodules. Category 2 - Annual screening in 12 months. Benign appearance. Nodules with low likelihood of becomin g active cancer. Category 3 - 6-month follow-up. Probably benign. Short-term follow-up suggested. Nodules with low lik elihood of becoming active cancer. Category 4A - 3-month follow-up and CT/PET if >8 mm in size. Suspicious finding. Findings which requi re additional testing. Category 4B - Findings which require additional testing and tissue sampling. Category 4X - Category 3 or 4 nodules with additional features or imaging findings that increases the suspicion of malignancy. Modifier S- Potentially clinically significant findings (non lung cancer) RADIATION DOSE DELIVERED: !Error Total DLP DATA REPOSITORY: All CT scans at this facility are submitted to the National Radiology Data Registry (NRDR) Dose Index Registry (DIR) with the [employer] ([employer]). RADIATION OPTIMIZATION: All CT scans at this facility use at least one of these dose optimization te chniques: automated exposure control; mA and/or kV adjustment per patient size (includes targeted exa ms where dose is matched to clinical indication); or iterative reconstruction.
== END 2024-03-25 01:26 ==
LOC: DI 01:06
PROVIDERS: PCP Nurse Practitioner Family; Visit Provider Nurse Practitioner Family
DX: Z87.891 Personal history of nicotine dependence (principal); Z12.2 Encounter for screening for malignant neoplasm of respiratory organs
CPT/HCPCS: 71271

== ENCOUNTER 2025-03-30 00:07 | Outpatient (CLI) | payer MEDICAID, SELFPAY ==
--- NOTE | 2025-03-30 05:30 | DI.CTLCSR_ITS ---
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 Lung Computer Aided Detection (CAD) was utilized. COMPARISON: CT CT CHEST LUNG CANCER SCREEN from 03/25/2024 FINDINGS: Tracheobronchial tree: Patent where visualized. No bronchiectasis. Pulmonary parenchyma: No consolidation or dominant measurable mass. No architectural distortion. Lung Nodules: There are no suspicious pulmonary nodules. Mediastinum and Cece: No dominant adenopathy or fluid collection. The esophagus is unremarkable. Thyroid gland: Unremarkable. Lymph nodes: Unremarkable. Pleura: No effusion or pneumothorax. Heart: The heart is not dilated. No coronary artery calcifications are seen. No pericardial effusion. Aorta: Thoracic aorta non-dilated. Upper abdomen: Unremarkable. Soft Tissues: There is bilateral gynecomastia. Bones: Within normal limits. IMPRESSION: There are no suspicious pulmonary nodules. Lung RADS Cat 1 - Negative: No nodules and definitely benign nodules Lung-RADS 1.0 CATEGORIES: Category 0 - Prior chest CT exam(s) being located for comparison. Category 1 - Annual screening in 12 months. No nodules or definitely benign nodules. Category 2 - Annual screening in 12 months. Benign appearance. Nodules with low likelihood of becoming active cancer. Category 3 - 6-month follow-up. Probably benign. Short-term follow-up suggested. Nodules with low likelihood of becoming active cancer. Category 4A - 3-month follow-up and CT/PET if >8 mm in size. Suspicious finding. Findings which require additional testing. Category 4B - Findings which require additional testing and tissue sampling. Suspicious finding. Category 4X - Category 3 or 4 nodules with additional features or imaging findings that increases the suspicion of malignancy. Modifier S- Potentially clinically significant finding. (Non lung cancer) RADIATION DOSE DELIVERED: 40.61mGy.cm Total DLP 40.61mGy.cmTotal DLP DATA REPOSITORY: All CT scans at this facility are submitted to the National Radiology Data Registry (NRDR) Dose Index Registry (DIR) with the [employer] ([employer]). RADIATION OPTIMIZATION: All CT scans at this facility use at least one of these dose optimization techniques: automated exposure control; mA and/or kV adjustment per patient size (includes targeted exams where dose is matched to clinical indication); or iterative reconstruction.
== END 2025-03-30 00:27 ==
LOC: DI 00:07
PROVIDERS: PCP Nurse Practitioner Family; Visit Provider Nurse Practitioner Family
DX: Z87.891 Personal history of nicotine dependence (principal); Z12.2 Encounter for screening for malignant neoplasm of respiratory organs
CPT/HCPCS: 71271

== ENCOUNTER 2025-07-03 00:40 | Outpatient (CLI) | payer MEDICAID, SELFPAY ==
[2025-07-03 09:01] LABS: Abs Immature Grans 0.02 10^3/uL (0.0-0.06); HCT 43.8 % (40.0-50.0); HGB 15.5 g/dL (13.5-17.5); Immature Grans % 0.3 %; MCH 29.6 pg (27.0-33.0); MCHC 35.4 % (32.0-36.0); MCV 84 fL (80-95); MPV 8.7 fL (8.0-11.0); Platelet Count 267 10^3/uL (130-400); RBC 5.23 10^6/uL (4.36-5.78); RDW 12.5 % (11.8-14.1); RDW-SD 37.9 fL; WBC 8.00 10^3/uL (4.4-10.8)
[2025-07-03 10:02] LABS: Lithium 0.60 mmol/L (0.60-1.20)
[2025-07-03 10:03] LABS: ALT 19 U/L (10-49); AST 19 U/L (<34); Albumin 4.7 g/dL (3.2-5.0); Alkaline Phosphatase 72 U/L (46-116); Anion Gap 11.3 mmol/L (3-11); BUN 33 mg/dL (9-23); Bilirubin, Total 0.3 mg/dL (0.2-1.2); CO2 22.7 mmol/L (20.0-31.0); Calcium 9.6 mg/dL (8.3-10.6); Chloride 107 mmol/L (98-107); Glucose 107 mg/dL (74-106); Potassium 4.5 mmol/L (3.5-5.1); Sodium 141 mmol/L (136-145); Total Protein 7.2 g/dL (5.7-8.2)
[2025-07-03 16:31] LABS: TSH 2.40 uIU/mL (0.55-4.78)
[2025-07-03 16:32] LABS: Vitamin B12 391 pg/mL (211-911)
[2025-07-03 17:34] LABS: PSA, Screening 0.5 ng/mL (<=3.5)
== END 2025-07-03 00:41 | disposition home or self-care (01) ==
PROVIDERS: PCP Nurse Practitioner Family; Visit Provider Nurse Practitioner Family
DX: I10 Essential (primary) hypertension (principal); Z12.5 Encounter for screening for malignant neoplasm of prostate; F31.72 Bipolar disorder, in full remission, most recent episode hypomanic; F41.1 Generalized anxiety disorder; Z56.89 Other problems related to employment
CPT/HCPCS: 36415; 80053; 84153; 80178; 82607; 84439; 84443; 85025